=== PATIENT | male | born 1945 | race Caucasian/White ===

== ENCOUNTER 2016-11-15 16:06 | Emergency (ER) | payer MEDICARE, MEDICAID ==
[~2016-11-15] VITALS: Ht 152.4 cm; Wt 59.0 kg
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
--- NOTE | 2016-11-15 16:20 | NUR ---
IV ACCESSED TO [facility]. BLOOD SAMPLE SENT TO LAB
[2016-11-15] MEDS ORDERED: IV NS 0.9% 500 ML IV ONE (16:25)
[2016-11-15] MEDS ORDERED: IV SET PRIMARY PUMP SET 1 EA INFUS.SET MC ONE (16:25)
[2016-11-15] MEDS ORDERED: TDAP [DIPH/PERTUSSIS/TET] 0.5 ML VIAL IM ONE ×2 (16:26→16:30)
[2016-11-15] MEDS ORDERED: IV NS 0.9% 500 ML BAG IV ONE (16:30)
[2016-11-15] MEDS ORDERED: LEVETIRACETAM (500MG) 500 MG in IV NS 0.9% 100 ML IV ONE (16:30)
--- NOTE | 2016-11-15 16:31 | NUR ---
DUE MED GIVEN
--- NOTE | 2016-11-15 16:31 | NUR ---
PT WAS TAKEN TO CT
[2016-11-15 16:33] LABS: BASOPHILS % (AUTO) 0.4 % (0.0-2.0); EOSINOPHILS # (AUTO) 0.4 /CMM (0.0-0.7); EOSINOPHILS % (AUTO) 5.9 % (0.0-6.0); HEMATOCRIT 43 % (39-51); HEMOGLOBIN 13.9 g/dL (13.5-17.5); LYMPHOCYTES # (AUTO) 0.8 /CMM (0.8-4.8); LYMPHOCYTES % (AUTO) 11.8 % (20.0-44.0); MEAN CORPUSCULAR HEMOGLOBIN 30 PG (26.0-33.0); MEAN CORPUSCULAR HGB CONC 33 g/dl (31.0-36.0); MEAN CORPUSCULAR VOLUME 93 fL (80-96); MONOCYTES # (AUTO) 0.5 /CMM (0.1-1.30); MONOCYTES % (AUTO) 6.9 % (2.0-12.0); NEUTROPHILS # (AUTO) 5.2 /CMM (1.8-8.9); PLATELET COUNT (AUTO) 183 /CMM (150-450); RDW COEFFICIENT OF VARIATION 12.2 (11.5-15.0); RED BLOOD CELL COUNT(AUTO) 4.59 MIL/uL (4.5-6.0); WHITE BLOOD COUNT (AUTO) 6.9 K/uL (4.3-11.0)
[2016-11-15 16:44] LABS: CALCIUM, SERUM 8.9 mg/dL (8.5-10.1); CREATININE 1.4 mg/dL (0.6-1.3); POTASSIUM 3.7 mmol/L (3.5-5.1)
[2016-11-15 16:49] LABS: ALBUMIN 4.4 g/dL (3.4-5.0); BILIRUBIN,DIRECT 0.1 mg/dL (0.0-0.2); BILIRUBIN,TOTAL 0.4 mg/dL (0.2-1.0); TOTAL PROTEIN, SERUM 7.9 g/dL (6.4-8.2)
[2016-11-15 16:55] LABS: INR 0.91 (0.87-1.13); PROTHROMBIN TIME 9.5 SECS (9.5-12.7)
[2016-11-15] MEDS ORDERED: OXYB5TAB PO (17:01)
[2016-11-15] MEDS ORDERED: FINA5TAB11 PO (17:01)
[2016-11-15] MEDS ORDERED: LEVE500T9 PO (17:01)
[2016-11-15] MEDS ORDERED: MULT-659 PO (17:01)
[2016-11-15] MEDS ORDERED: SIMV20TA6 PO (17:01)
[2016-11-15] MEDS ORDERED: METO25TA20 PO (17:01)
[2016-11-15 17:36] VITALS: BP 138/80
--- NOTE | 2016-11-15 17:37 | NUR ---
Patient discharged to home in stable condition. Written and verbal after care instructions given. Patient verbalizes understanding of instruction.patient in the waiting room while waiting for his and dtr
== END 2016-11-15 17:37 | disposition home or self-care (01) ==
LOC: ER 16:09
DX: S01.01XA Laceration without foreign body of scalp, initial encounter (principal); R56.9 Unspecified convulsions; Z23 Encounter for immunization; R79.1 Abnormal coagulation profile; W18.39XA Other fall on same level, initial encounter; Y93.89 Activity, other specified; Y92.811 Bus as the place of occurrence of the external cause; Y99.9 Unspecified external cause status
CPT/HCPCS: 12002; 36415; 70450; 80048; 80076; 85025; 85730; 90471; 90715; 96365; 99285; A4606; J1953; J7030; J7040; Z7610

== ENCOUNTER 2018-07-16 21:33 | Inpatient (IN) | payer MEDICARE, MEDICAID ==
[~2018-07-16] VITALS: Ht 175.3 cm; Wt 63.5 kg
[~2018-07-16 21:33] MED LIST: FINA5TAB11 PO; LEVE500T9 PO; METO25TA20 PO; MULT-659 PO; OXYB5TAB PO; SIMV20TA6 PO
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
--- NOTE | 2018-07-16 21:50 | NUR ---
URINE COLLECTED AND SENT TO LAB
--- NOTE | 2018-07-16 21:51 | NUR ---
STALLION MANAGER AT BEDSIDE FOR BLOOD DRAW
[2018-07-16 21:57] LABS: BASOPHILS % (AUTO) 0.5 % (0.0-2.0); EOSINOPHILS % (AUTO) 4.1 % (0.0-6.0); HEMATOCRIT 41 % (39-51); HEMOGLOBIN 13.5 g/dL (13.5-17.5); LYMPHOCYTES # (AUTO) 0.8 /CMM (0.8-4.8); LYMPHOCYTES % (AUTO) 16.1 % (20.0-44.0); MEAN CORPUSCULAR HGB CONC 33 g/dl (31.0-36.0); MEAN CORPUSCULAR VOLUME 95 fL (80-96); MONOCYTES # (AUTO) 0.4 /CMM (0.1-1.30); MONOCYTES % (AUTO) 9.1 % (2.0-12.0); NEUTROPHILS # (AUTO) 3.4 /CMM (1.8-8.9); NEUTROPHILS % (AUTO) 70.2 % (43.0-81.0); PLATELET COUNT (AUTO) 185 /CMM (150-450); RED BLOOD CELL COUNT(AUTO) 4.27 MIL/uL (4.5-6.0); WHITE BLOOD COUNT (AUTO) 4.9 K/uL (4.3-11.0)
[2018-07-16 22:04] LABS: APPEARANCE,URINE CLEAR (CLEAR); BILIRUBIN,URINE NEGATIVE (NEGATIVE); BLOOD, URINE TRACE-INTA Ery/uL (NEGATIVE); COLOR,URINE YELLOW (YELLOW); KETONES,URINE NEGATIVE (NEGATIVE); LEUKOCYTE ESTERASE ,URINE NEGATIVE (NEGATIVE); NITRITE, URINE NEGATIVE (NEGATIVE); PH,URINE 5.5 (5.0-8.0); PROTEIN,URINE NEGATIVE (NEGATIVE); UGLUCOSE TRACE mg/dL (NEGATIVE); UROBILINOGEN,URINE 0.2 EU/dL (0.2)
[2018-07-16 22:13] LABS: CALCIUM, SERUM 9.1 mg/dL (8.5-10.1); CARBON DIOXIDE 27 mmol/L (21-32); CHLORIDE 105 mmol/L (98-107); CREATININE 1.1 mg/dL (0.6-1.3); GLUCOSE 117 mg/dL (74-106); POTASSIUM 4.5 mmol/L (3.5-5.1); SODIUM SERUM 141 mmol/L (136-145); UREA NITROGEN, BLOOD 17 mg/dL (7-18)
[2018-07-16 22:19] LABS: ALANINE AMINOTRANSFERASE 25 U/L (12-78); ALBUMIN 3.8 g/dL (3.4-5.0); ALCOHOL, BLOOD < 3 mg/dL (0-0); ALKALINE PHOSPHATASE 90 U/L (46-116); ASPARTATE AMINOTRANSFERASE 17 U/L (15-37); BILIRUBIN,DIRECT 0.1 mg/dL (0.0-0.2); BILIRUBIN,TOTAL 0.2 mg/dL (0.2-1.0); TOTAL PROTEIN, SERUM 7.2 g/dL (6.4-8.2)
[2018-07-16 22:22] LABS: ACETAMINOPHEN 0 ug/ml (10-30); SALICYLATE 1.2 mg/dL (2.8-20.0)
--- NOTE | 2018-07-16 22:29 | NUR ---
CALLED ART, YOKE PRESSER FOR EVAL
[2018-07-16 22:55] LABS: WBC,URINE 0-2 /HPF (0-3)
[2018-07-16 22:56] LABS: BACTERIA,URINE Rare /HPF (None Seen); SQUAMOUS EPITHELIAL CELL,UR Few /HPF (None Seen)
--- NOTE | 2018-07-16 23:31 | NUR ---
ART, CLOTH EXAMINER MACHINE AT BEDSIDE
--- NOTE | 2018-07-17 00:30 | NUR ---
GAVE REPORT TO FATUMA OLEA FOR ELMIRA. BED ASSIGNMENT 313-B
[2018-07-17] MEDS ORDERED: PRAM0.253 PO (00:53)
[2018-07-17] MEDS ORDERED: HYDR-4384 PO (00:53)
[2018-07-17] MEDS ORDERED: QUET50TA PO (00:53)
[2018-07-17] MEDS ORDERED: QUET100T PO (00:53)
[2018-07-17] MEDS ORDERED: PSYL3.4P6 PO (00:53)
[2018-07-17] MEDS ORDERED: OXCA600T5 PO (00:53)
[2018-07-17] MEDS ORDERED: TRAZ-182 PO (00:53)
[2018-07-17] MEDS ORDERED: INSU100I34 SQ (00:53)
[2018-07-17] MEDS ORDERED: MAG30ORA PO (00:53)
[2018-07-17] MEDS ORDERED: CLON0.1T PO (00:53)
--- NOTE | 2018-07-17 01:29 | NUR ---
PT TRANSFERRED TO [facility] BED 213-B WITH EMT VIA [facility]
[2018-07-17 01:30] VITALS: BP 160/84
[2018-07-17] MEDS ORDERED: MAG HYDROX/AL HYDROX/SIMETH 30 ML UDC PO PRN (02:00)
[2018-07-17] MEDS ORDERED: QUETIAPINE FUMARATE 25 MG TABLET PO PRN ×2 (02:00)
[2018-07-17] MEDS ORDERED: ACETAMINOPHEN 325 MG TABLET PO PRN (02:00)
[2018-07-17] MEDS ORDERED: MAGNESIUM HYDROXIDE 30 ML UDC PO PRN (02:00)
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
--- NOTE | 2018-07-17 06:02 | NUR ---
0600 PAGED AND SPOKE WITH WOOD SHOP TEACHER VINICIO, RE; MED RECON AND LAURA FOR ACCUHECK. HE SAID THAT MED RECON CAN BE DONE BY DAY SHIFT. HE ORDERED ACCUCHECK ACHS, MILD SLIDING SCALE.
--- NOTE | 2018-07-17 06:06 | NUR ---
CALLED SHELBI PELLETIER, PATIENT'S , NO ANSWER, LEFT A MESSAGE
[2018-07-17] MEDS ORDERED: DEXTROSE 50%-WATER 50 ML DISP.SYRIN IV PRN ×2 (06:30→18:00)
[2018-07-17] MEDS ORDERED: INSULIN REGULAR, HUMAN 100 UNIT/ML 3 ML VIAL SQ PRN (06:30)
--- NOTE | 2018-07-17 06:46 | NUR ---
ACCUCHECK @ 0645 92 MG/DL, O.JUICE 120 ML GIVEN.
[2018-07-17] MEDS: BLOOD SUGAR DIAGNOSTIC 1 EACH STRIP IN SCH ×5 (07:30→21:07)
[2018-07-17 08:00] VITALS: BP 160/90
--- NOTE | 2018-07-17 08:40 | NUR ---
GPS/RN RECEIVED TO ORDER FROM DR GARCIA TO CHANGE PROVIDER FROM DR MORTON TO [facility]. ADMITTING CALLED TO MAKE CHANGES. DR MCKEON PAGED OVERHEAD AND THAN CALLED VIA HIS MESSAGING SERVICE TO NOTIFY. [facility] MADE AWARE OF ADMISSION VIA EXCHANGE WELL( DR NATHALY CAVAZOS CALLED BACK AND MADE AWARE)
--- NOTE | 2018-07-17 09:58 | NUR ---
FABIO contacted pts Lindsay [phone] for collateral information. Lindsay stated that she knew very little Greek and was unable to answer questions. FABIO then provided her with visiting hour information and provide her with the nurses station phone number.
--- NOTE | 2018-07-17 10:00 | NUR ---
FABIO contacted pts son Armen [phone] and left a voicemail for callback.
--- NOTE | 2018-07-17 10:00 | NUR ---
SW contacted corbin Sutton at [facility] Address: [address] [place] [address] who confirmed pt is able to return to the facility once stable.
--- NOTE | 2018-07-17 10:21 | NUR ---
INITIAL DISCHARGE PLAN: Patient will return to [facility] Address: [address] [facility], [place] [address] . FABIO confirmed with corbin Sutton at the facility. FABIO will help form a safe and proper discharge in collaboration with MD and facility.
[2018-07-17 16:00] VITALS: BP 150/95
--- NOTE | 2018-07-17 17:20 | NUR ---
GPS/RN CALLED [facility] TO REMIND TO SEE THE PT. PHYSICIAN CORE ANALYST STEFFEN PARKER MD WILL CALL BACK PER WASTE HAND.
[2018-07-17] MEDS: risperiDONE-M 0.5 MG TAB.RAPDIS PO SCH (18:17)
[2018-07-17] MEDS: PRAMIPEXOLE DI-HCL 0.25 MG TABLET PO SCH (18:17)
[2018-07-17 20:00] VITALS: BP 142/73
[2018-07-17] MEDS: LEVETIRACETAM (250 MG) 250 MG TABLET PO SCH (21:06)
[2018-07-17] MEDS: DIVALPROEX SODIUM 125 MG TABLET.DR PO SCH (21:06)
[2018-07-17] MEDS: METOPROLOL TARTRATE 25 MG TABLET PO SCH (21:07)
[2018-07-17] MEDS: ZOLPIDEM TARTRATE 5 MG TABLET PO PRN (21:08)
[2018-07-17] MEDS: INSULIN REGULAR, HUMAN 100 UNIT/ML 3 ML VIAL SQ PRN (21:15)
--- NOTE | 2018-07-17 21:16 | NUR ---
ACCUCHECK 132 MG/DL, 2 UNITS OF REGULAR INSULIN SC ADMINISTERED. HAD HS SNACKS, EGG SANDWICH AND 125 ML OF CRANBERRY JUICE. ATE 100%.
[2018-07-18 07:29] LABS: BASOPHILS % (AUTO) 0.6 % (0.0-2.0); EOSINOPHILS % (AUTO) 5.1 % (0.0-6.0); HEMATOCRIT 43 % (39-51); HEMOGLOBIN 14.5 g/dL (13.5-17.5); LYMPHOCYTES # (AUTO) 0.8 /CMM (0.8-4.8); LYMPHOCYTES % (AUTO) 18.6 % (20.0-44.0); MEAN CORPUSCULAR HGB CONC 34 g/dl (31.0-36.0); MEAN CORPUSCULAR VOLUME 93 fL (80-96); MONOCYTES # (AUTO) 0.4 /CMM (0.1-1.30); MONOCYTES % (AUTO) 8.7 % (2.0-12.0); PLATELET COUNT (AUTO) 208 /CMM (150-450); RED BLOOD CELL COUNT(AUTO) 4.57 MIL/uL (4.5-6.0); WHITE BLOOD COUNT (AUTO) 4.4 K/uL (4.3-11.0)
[2018-07-18] MEDS: BLOOD SUGAR DIAGNOSTIC 1 EACH STRIP IN SCH ×8 (07:30→21:23)
[2018-07-18 07:56] LABS: ALBUMIN 3.5 g/dL (3.4-5.0); BILIRUBIN,TOTAL 0.3 mg/dL (0.2-1.0); CALCIUM, SERUM 8.7 mg/dL (8.5-10.1); CREATININE 1.2 mg/dL (0.6-1.3); POTASSIUM 4.1 mmol/L (3.5-5.1); TOTAL PROTEIN, SERUM 7.3 g/dL (6.4-8.2)
[2018-07-18 08:00] VITALS: BP 110/63
[2018-07-18] MEDS: DIVALPROEX SODIUM 125 MG TABLET.DR PO SCH ×3 (08:20→20:42)
[2018-07-18] MEDS: risperiDONE-M 0.5 MG TAB.RAPDIS PO SCH ×2 (08:20→17:32)
[2018-07-18] MEDS: LEVETIRACETAM (250 MG) 250 MG TABLET PO SCH ×2 (08:20→20:42)
[2018-07-18] MEDS: METOPROLOL TARTRATE 25 MG TABLET PO SCH ×2 (08:21→20:43)
[2018-07-18] MEDS: PSYLLIUM SEED 1 PKT PACKET PO SCH ×2 (08:23→17:32)
[2018-07-18] MEDS: FINASTERIDE (5 MG) 5 MG TABLET PO SCH (08:23)
[2018-07-18] MEDS: MULTIVIT W/MINERALS 1 TAB TABLET PO SCH (08:23)
[2018-07-18] MEDS: CLONIDINE HCL 0.1 MG TABLET PO SCH ×3 (08:24→17:32)
[2018-07-18] MEDS: OXCARBAZEPINE 150 MG TABLET PO SCH ×3 (08:25→17:32)
[2018-07-18 08:28] LABS: THYROID STIMULATING HORMONE 4.685 uIU/mL (0.358-3.74)
[2018-07-18] MEDS: INSULIN REGULAR, HUMAN 100 UNIT/ML 3 ML VIAL SQ PRN (13:23)
[2018-07-18 16:00] VITALS: BP 126/78
[2018-07-18] MEDS: PRAMIPEXOLE DI-HCL 0.25 MG TABLET PO SCH (17:33)
[2018-07-18 20:00] VITALS: BP 111/83
[2018-07-18] MEDS: ZOLPIDEM TARTRATE 5 MG TABLET PO PRN (20:44)
--- NOTE | 2018-07-18 21:23 | NUR ---
ACCUCHECK 105 MG/DL, NO INSULIN DUE AT THIS TIME. HS SNACKS GIVEN
[2018-07-19 08:00] VITALS: BP 169/103
[2018-07-19] MEDS: BLOOD SUGAR DIAGNOSTIC 1 EACH STRIP IN SCH ×6 (08:49→21:46)
[2018-07-19] MEDS: CLONIDINE HCL 0.1 MG TABLET PO SCH ×3 (08:50→18:01)
[2018-07-19] MEDS: MULTIVIT W/MINERALS 1 TAB TABLET PO SCH (08:50)
[2018-07-19] MEDS: FINASTERIDE (5 MG) 5 MG TABLET PO SCH (08:50)
[2018-07-19] MEDS: LEVETIRACETAM (250 MG) 250 MG TABLET PO SCH ×2 (08:50→21:46)
[2018-07-19] MEDS: DIVALPROEX SODIUM 125 MG TABLET.DR PO SCH ×4 (08:50→20:48)
[2018-07-19] MEDS: PSYLLIUM SEED 1 PKT PACKET PO SCH ×2 (08:50→17:00)
[2018-07-19] MEDS: METOPROLOL TARTRATE 25 MG TABLET PO SCH ×2 (08:51→20:47)
[2018-07-19] MEDS: risperiDONE-M 0.5 MG TAB.RAPDIS PO SCH ×3 (08:51→20:47)
[2018-07-19] MEDS: OXCARBAZEPINE 150 MG TABLET PO SCH ×3 (08:51→17:56)
--- NOTE | 2018-07-19 13:00 | NUR ---
GPS/RN DR CAVAZOS MADE AWARE OF PT BEING NAUSEUS AND HAVING ELEVATED BP. NEW ORDERS RECEIVED FOR ZOFRAN 1MG PO Q6 AND IT IS OK TO HOLD 1300 TRILEPTAL .
[2018-07-19 13:12] VITALS: BP 162/99
[2018-07-19] MEDS ORDERED: ONDANSETRON 4 MG TAB.RAPDIS SL PRN (14:00)
--- NOTE | 2018-07-19 14:50 | NUR ---
GPS/RN DR MCGILL'S EXCHANGE CALLED FOR THE ORDERS PT HAS ELEVATED BP. PT WAS NAUSEAS AND ZOFRAN SL GIVEN ORDERED.
[2018-07-19] MEDS ORDERED: CLONIDINE HCL 0.1 MG TABLET PO ONE (15:30)
[2018-07-19 16:00] VITALS: BP 168/103
[2018-07-19] MEDS ORDERED: CLONIDINE HCL 0.1 MG TABLET PO SCH (17:00)
[2018-07-19] MEDS: PRAMIPEXOLE DI-HCL 0.25 MG TABLET PO SCH (18:00)
[2018-07-19 20:00] VITALS: BP 83/49
[2018-07-19 20:14] VITALS: BP 75/53
--- NOTE | 2018-07-19 20:34 | NUR ---
RN GPS NOTES CALLED AND SPOKE TO VINICIO REGARDING PATIENTS INCREASE BLOOD PRESSURE IN AM AND EARLIER REPORTS OF NEW CLONIDINE ORDER INCREASED TO 0.2MG AND GIVEN AND NOW BP IS LOW AT 83/49,80,18,98%RA, PATENT ASYMPTOMATIC ALERT AND ORIENTEDX 3-4 ABLE TO FOLLOW COMMANDS AND IS VERBALLY RESPONSIVE. PER VINICIO NO NEW ORDERS AT THIS TIME MONITOR.
--- NOTE | 2018-07-19 20:48 | NUR ---
RN GPS NOTES DEPAKOTE AND RISPERDAL HELD PER DR. GARCIA, DUE TO LOW BLOOD PRESSURE. PER MD DO NOT GIVE AT THIS TIME SAUD TO LOW BP LOPRESSOR ALSO HELD DUE TO LOW BP
[2018-07-20] VITALS: BP 92/60
--- NOTE | 2018-07-20 | NUR ---
RN GPS NOTES MANUALLY TOOK BLOOD PRESSURE NOTED BP INCREASING TO 92/60, ASYMPTOMATIC VERBALLY RESPONSIVE WILL CONTINUE TO MONITOR.
[2018-07-20 05:30] VITALS: BP 116/69
--- NOTE | 2018-07-20 05:35 | NUR ---
RN GPS NOTES PATIENT B/P NOTES INCREASING 116/69,HEART RATE 66 NO CHANGE IN LOC PATIENT IS VERBALLY RESPONSIVE THROUGHOUT NIGHT REMAINS SAFE.
[2018-07-20 08:00] VITALS: BP 118/58
[2018-07-20] MEDS: METOPROLOL TARTRATE 25 MG TABLET PO SCH ×2 (09:00→21:51)
[2018-07-20] MEDS: CLONIDINE HCL 0.1 MG TABLET PO SCH ×3 (09:00→17:00)
[2018-07-20] MEDS: FINASTERIDE (5 MG) 5 MG TABLET PO SCH (09:15)
[2018-07-20] MEDS: risperiDONE-M 0.5 MG TAB.RAPDIS PO SCH ×2 (09:16→21:50)
[2018-07-20] MEDS: LEVETIRACETAM (250 MG) 250 MG TABLET PO SCH ×2 (09:16→21:49)
[2018-07-20] MEDS: MULTIVIT W/MINERALS 1 TAB TABLET PO SCH (09:17)
[2018-07-20] MEDS: BLOOD SUGAR DIAGNOSTIC 1 EACH STRIP IN SCH ×4 (09:18→21:41)
[2018-07-20] MEDS: DIVALPROEX SODIUM 125 MG TABLET.DR PO SCH ×3 (09:18→21:52)
[2018-07-20] MEDS: PSYLLIUM SEED 1 PKT PACKET PO SCH ×2 (09:19→17:30)
--- NOTE | 2018-07-20 10:44 | NUR ---
gps rn note: Seen and examined by physical therapist, per PT, no PT needed noted
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
--- NOTE | 2018-07-20 14:17 | NUR ---
WOUND CARE CONSULT: PT REFUSED SKIN ASSESSMENT. PT NOTED TO BE AMBULATORY AND IS CONTINENT PER NURSING STAFF. WILL SEE PT PT CONDITION PERMITS.
[2018-07-20 16:00] VITALS: BP 121/54
[2018-07-20] MEDS: PRAMIPEXOLE DI-HCL 0.25 MG TABLET PO SCH (17:31)
[2018-07-20] MEDS: INSULIN REGULAR, HUMAN 100 UNIT/ML 3 ML VIAL SQ PRN (17:51)
[2018-07-20 20:07] VITALS: BP 127/72
[2018-07-21] MEDS: BLOOD SUGAR DIAGNOSTIC 1 EACH STRIP IN SCH ×4 (07:30→21:24)
[2018-07-21 08:00] VITALS: BP 150/73
[2018-07-21] MEDS: METOPROLOL TARTRATE 25 MG TABLET PO SCH ×2 (09:00→21:00)
[2018-07-21] MEDS: INSULIN REGULAR, HUMAN 100 UNIT/ML 3 ML VIAL SQ PRN ×2 (11:06→17:12)
[2018-07-21] MEDS: DIVALPROEX SODIUM 125 MG TABLET.DR PO SCH ×3 (11:07→21:27)
[2018-07-21] MEDS: LEVETIRACETAM (250 MG) 250 MG TABLET PO SCH ×2 (11:07→21:26)
[2018-07-21] MEDS: MULTIVIT W/MINERALS 1 TAB TABLET PO SCH (11:08)
[2018-07-21] MEDS: FINASTERIDE (5 MG) 5 MG TABLET PO SCH (11:09)
[2018-07-21] MEDS: CLONIDINE HCL 0.1 MG TABLET PO SCH ×3 (11:09→17:10)
[2018-07-21] MEDS: PSYLLIUM SEED 1 PKT PACKET PO SCH ×2 (11:09→17:11)
[2018-07-21] MEDS: risperiDONE-M 0.5 MG TAB.RAPDIS PO SCH ×2 (11:10→21:00)
--- NOTE | 2018-07-21 14:20 | NUR ---
FABIO met with pts Lindsay [phone] and gave her letter confirming pt is currently hospitalized.
[2018-07-21 16:00] VITALS: BP 111/55
[2018-07-21] MEDS: PRAMIPEXOLE DI-HCL 0.25 MG TABLET PO SCH (17:10)
[2018-07-21 21:40] VITALS: BP 106/54
[2018-07-22 07:08] LABS: BASOPHILS % (AUTO) 0.9 % (0.0-2.0); EOSINOPHILS % (AUTO) 3.9 % (0.0-6.0); HEMATOCRIT 38 % (39-51); HEMOGLOBIN 12.9 g/dL (13.5-17.5); LYMPHOCYTES # (AUTO) 0.9 /CMM (0.8-4.8); LYMPHOCYTES % (AUTO) 22.5 % (20.0-44.0); MEAN CORPUSCULAR HGB CONC 34 g/dl (31.0-36.0); MEAN CORPUSCULAR VOLUME 94 fL (80-96); MONOCYTES # (AUTO) 0.3 /CMM (0.1-1.30); MONOCYTES % (AUTO) 7.7 % (2.0-12.0); NEUTROPHILS # (AUTO) 2.6 /CMM (1.8-8.9); PLATELET COUNT (AUTO) 194 /CMM (150-450); RED BLOOD CELL COUNT(AUTO) 4.05 MIL/uL (4.5-6.0)
[2018-07-22] MEDS: BLOOD SUGAR DIAGNOSTIC 1 EACH STRIP IN SCH ×4 (07:30→21:13)
[2018-07-22 07:43] LABS: CALCIUM, SERUM 8.9 mg/dL (8.5-10.1); MAGNESIUM 2.2 mg/dL (1.8-2.4); PHOSPHORUS 3.8 mg/dL (2.5-4.9); POTASSIUM 4.3 mmol/L (3.5-5.1)
[2018-07-22 08:00] VITALS: BP 129/66
--- NOTE | 2018-07-22 08:30 | NUR ---
WOUND CARE CONSULT: PT PRESENTS WITH SKIN STAINING TO INNER BUTTOCKS AREA, PRESENT ON ADMISSION. PT IS AMBULATORY AND CONTINENT BUT HE IS UNSTEADY ON HIS FEET PER NURSING STAFF. WILL SEE PRAlem. IN AGREEMENT WITH PLAN OF CARE.
[2018-07-22] MEDS: DIVALPROEX SODIUM 125 MG TABLET.DR PO SCH ×3 (09:00→21:13)
[2018-07-22] MEDS: risperiDONE-M 0.5 MG TAB.RAPDIS PO SCH ×2 (09:00→21:00)
[2018-07-22] MEDS: LEVETIRACETAM (250 MG) 250 MG TABLET PO SCH ×2 (09:00→21:13)
[2018-07-22] MEDS: MULTIVIT W/MINERALS 1 TAB TABLET PO SCH (09:00)
[2018-07-22] MEDS: METOPROLOL TARTRATE 25 MG TABLET PO SCH ×2 (09:00→21:00)
[2018-07-22] MEDS: PSYLLIUM SEED 1 PKT PACKET PO SCH ×2 (09:00→17:27)
[2018-07-22] MEDS: CLONIDINE HCL 0.1 MG TABLET PO SCH ×3 (09:00→17:27)
[2018-07-22] MEDS: FINASTERIDE (5 MG) 5 MG TABLET PO SCH (09:00)
[2018-07-22] MEDS ORDERED: Z GUARD REMEDY 2 OZ OINT TP PRN (09:00)
[2018-07-22] MEDS: PRAMIPEXOLE DI-HCL 0.25 MG TABLET PO SCH (14:16)
[2018-07-22 16:00] VITALS: BP 120/64
[2018-07-22] MEDS: INSULIN REGULAR, HUMAN 100 UNIT/ML 3 ML VIAL SQ PRN ×2 (17:09→21:18)
[2018-07-22 20:18] VITALS: BP 89/50
[2018-07-22 21:00] VITALS: BP 101/51
[2018-07-23] MEDS: BLOOD SUGAR DIAGNOSTIC 1 EACH STRIP IN SCH ×4 (07:35→22:28)
[2018-07-23 08:00] VITALS: BP 104/63
[2018-07-23] MEDS: CLONIDINE HCL 0.1 MG TABLET PO SCH ×3 (08:35→17:00)
[2018-07-23] MEDS: METOPROLOL TARTRATE 25 MG TABLET PO SCH ×2 (08:36→22:12)
[2018-07-23] MEDS: risperiDONE-M 0.5 MG TAB.RAPDIS PO SCH ×3 (08:36→22:15)
--- NOTE | 2018-07-23 08:39 | NUR ---
FABIO faxed requested clinical information to Jake-case packer and sealer with [employer] P:[phone] F:[phone]. Per Jake the [employer] does not manage pts care but oversees it and therefore, needs clinical information and daily clinicals faxed.
[2018-07-23] MEDS: PSYLLIUM SEED 1 PKT PACKET PO SCH ×2 (08:57→17:25)
[2018-07-23] MEDS: DIVALPROEX SODIUM 125 MG TABLET.DR PO SCH ×3 (08:58→22:12)
[2018-07-23] MEDS: LEVETIRACETAM (250 MG) 250 MG TABLET PO SCH ×2 (08:58→22:12)
[2018-07-23] MEDS: FINASTERIDE (5 MG) 5 MG TABLET PO SCH (08:58)
[2018-07-23] MEDS: MULTIVIT W/MINERALS 1 TAB TABLET PO SCH (08:58)
[2018-07-23 12:11] VITALS: BP 103/58
[2018-07-23 16:00] VITALS: BP 139/60
[2018-07-23] MEDS: PRAMIPEXOLE DI-HCL 0.25 MG TABLET PO SCH (17:25)
--- NOTE | 2018-07-23 17:27 | NUR ---
MEDICATION NOTE. PT 1700 BP MED HELD R/T TO LOW BP DURING SHIFT. WILL ENDORSE TO NIGHT RN TO MONITOR.
[2018-07-23 20:00] VITALS: BP 125/56
[2018-07-23] MEDS: ZOLPIDEM TARTRATE 5 MG TABLET PO PRN (22:12)
--- NOTE | 2018-07-24 01:40 | NUR ---
RN NOTES RN CAME BACK FROM BREAK. COVERING NURSE MENTIONED PATIENT WAS FOUND ON FLOOR. PATIENT IS ON LOW BED AND CRAWLS AROUND, NO PAIN NOTED, NO SWELLING OR REDNESS NOTED. SKIN TEAR FOUND ON RIGHT ELBOW AND RIGHT PATEL. CLEANSED AND STOPPED BLEEDING. APPLIED DRY DRESSING. NO SIGNS OF INFECTION.
[2018-07-24] MEDS: BLOOD SUGAR DIAGNOSTIC 1 EACH STRIP IN SCH ×4 (07:30→22:34)
[2018-07-24 08:00] VITALS: BP 110/63
[2018-07-24] MEDS: LEVETIRACETAM (250 MG) 250 MG TABLET PO SCH ×2 (09:39→22:18)
[2018-07-24] MEDS: MULTIVIT W/MINERALS 1 TAB TABLET PO SCH (09:39)
[2018-07-24] MEDS: FINASTERIDE (5 MG) 5 MG TABLET PO SCH (09:39)
[2018-07-24] MEDS: DIVALPROEX SODIUM 125 MG TABLET.DR PO SCH ×3 (09:39→22:18)
[2018-07-24] MEDS: PSYLLIUM SEED 1 PKT PACKET PO SCH ×2 (09:39→16:42)
[2018-07-24] MEDS: risperiDONE-M 0.5 MG TAB.RAPDIS PO SCH ×3 (09:40→22:19)
--- NOTE | 2018-07-24 09:42 | NUR ---
FABIO faxed requested clinical information to Jake-nurse outreach case manager with [employer] P:[phone] F:[phone].
--- NOTE | 2018-07-24 10:18 | NUR ---
OBJECTIVE C DEVELOPER RV PT. WILL COMPLETE WOUND CARE ORDERED.
--- NOTE | 2018-07-24 10:37 | NUR ---
WOUND CARE CONSULT: PT PRESENTS AMBULATORY WITH WALKER AND CONTINENT WITH RT ELBOW SKIN TEAR AND RT KNEE ABRASION. RECOMMENDATIONS MADE FOR WOUND CARE. DISCUSSED WITH NURSING STAFF. WILL SEE PRGil VARGAS IN AGREEMENT WITH PLAN OF CARE. CURRENT BOBBY SCORE IS 18.
[2018-07-24] MEDS: CLONIDINE HCL 0.1 MG TABLET PO SCH ×3 (12:17→16:39)
[2018-07-24] MEDS: METOPROLOL TARTRATE 25 MG TABLET PO SCH ×2 (12:17→22:20)
--- NOTE | 2018-07-24 13:00 | NUR ---
PT BP WNL AND PT REFUSING BP MED
[2018-07-24 16:00] VITALS: BP 119/69
[2018-07-24] MEDS: PRAMIPEXOLE DI-HCL 0.25 MG TABLET PO SCH (17:35)
--- NOTE | 2018-07-24 19:24 | NUR ---
GPS RN NOTE, RECEIVED PATIENT AWAKE AND IN BED NO S/S OR COMPLAINTS OF PAIN AT THIS TIME. PATIENT IS DISPLAYING NO S/S OF APPARENT DISTRESS AT THIS TIME. PATIENT BREATHING IS UNLABORED WITH EQUAL RISE AND FALL OF THE CHEST. PATIENT HAS A ONE TO ONE SITTER FOR HIGH FALL RISK. PATIENT IS ALERT AND ORIENTED X 1 ON ROOM AIR WITH A SPO2 0F 96%. PATIENT IS MED COMPLIANT, DISORGANIZED, DELUSIONAL, UNCOOPERATIVE, CONFUSED AT TIME, AND NEEDS REORIENTATION. PATIENT DENIES SUICIDE AND HOMICIDAL IDEATIONS AT THIS TIME. PATIENT ASSISTED WITH TURNING AND REPOSITIONING Q2HR AND PRN FOR COMFORT AND CIRCULATION. PATIENT HAS NO NEEDS AT THIS TIME. PATIENT EDUCATED ON THE USE OF THE CALL GUERIN. PATIENT BED SIDE RAILS ARE UP X 2 FOR SAFETY, BED IS LOCKED AND LOW. WILL CONTINUE TO MONITOR AND MAINTAIN SAFETY Q15 MIN WITH THE HELP OF STAFF.
[2018-07-24 20:00] VITALS: BP 116/61
[2018-07-25 08:00] VITALS: BP 113/71
[2018-07-25] MEDS: BLOOD SUGAR DIAGNOSTIC 1 EACH STRIP IN SCH ×4 (08:47→21:23)
[2018-07-25] MEDS: FINASTERIDE (5 MG) 5 MG TABLET PO SCH (08:48)
[2018-07-25] MEDS: DIVALPROEX SODIUM 125 MG TABLET.DR PO SCH ×3 (08:48→21:09)
[2018-07-25] MEDS: MULTIVIT W/MINERALS 1 TAB TABLET PO SCH (08:48)
[2018-07-25] MEDS: risperiDONE-M 0.5 MG TAB.RAPDIS PO SCH ×3 (08:49→21:09)
[2018-07-25] MEDS: PSYLLIUM SEED 1 PKT PACKET PO SCH ×2 (08:52→16:33)
[2018-07-25] MEDS: CLONIDINE HCL 0.1 MG TABLET PO SCH (08:53)
[2018-07-25] MEDS: METOPROLOL TARTRATE 25 MG TABLET PO SCH ×2 (08:53→21:00)
[2018-07-25] MEDS: LEVETIRACETAM (250 MG) 250 MG TABLET PO SCH ×2 (08:54→21:09)
[2018-07-25] MEDS ORDERED: CLONIDINE HCL 0.1 MG TABLET PO PRN (12:00)
[2018-07-25 16:00] VITALS: BP 132/71
[2018-07-25] MEDS: PRAMIPEXOLE DI-HCL 0.25 MG TABLET PO SCH (17:32)
[2018-07-25 20:00] VITALS: BP 116/73
[2018-07-25 22:00] VITALS: BP 115/70
[2018-07-26] MEDS: BLOOD SUGAR DIAGNOSTIC 1 EACH STRIP IN SCH ×4 (07:30→21:34)
[2018-07-26 07:59] LABS: THYROID STIMULATING HORMONE 2.315 uIU/mL (0.358-3.74)
[2018-07-26 08:00] VITALS: BP 101/56
[2018-07-26] MEDS: METOPROLOL TARTRATE 25 MG TABLET PO SCH (09:00)
[2018-07-26] MEDS: DIVALPROEX SODIUM 125 MG TABLET.DR PO SCH ×3 (09:05→21:33)
[2018-07-26] MEDS: risperiDONE-M 0.5 MG TAB.RAPDIS PO SCH ×3 (09:06→21:34)
[2018-07-26] MEDS: PSYLLIUM SEED 1 PKT PACKET PO SCH ×2 (09:06→17:33)
[2018-07-26] MEDS: FINASTERIDE (5 MG) 5 MG TABLET PO SCH (09:06)
[2018-07-26] MEDS: LEVETIRACETAM (250 MG) 250 MG TABLET PO SCH ×2 (09:06→21:33)
[2018-07-26] MEDS: MULTIVIT W/MINERALS 1 TAB TABLET PO SCH (09:06)
[2018-07-26 16:00] VITALS: BP 107/54
[2018-07-26] MEDS: PRAMIPEXOLE DI-HCL 0.25 MG TABLET PO SCH (17:32)
[2018-07-26 20:00] VITALS: BP 98/61
[2018-07-27 07:19] LABS: BASOPHILS % (AUTO) 0.8 % (0.0-2.0); EOSINOPHILS % (AUTO) 6.9 % (0.0-6.0); HEMATOCRIT 41 % (39-51); HEMOGLOBIN 13.8 g/dL (13.5-17.5); LYMPHOCYTES % (AUTO) 22.7 % (20.0-44.0); MEAN CORPUSCULAR HGB CONC 33 g/dl (31.0-36.0); MEAN CORPUSCULAR VOLUME 95 fL (80-96); MONOCYTES # (AUTO) 0.4 /CMM (0.1-1.30); MONOCYTES % (AUTO) 8.5 % (2.0-12.0); NEUTROPHILS # (AUTO) 2.8 /CMM (1.8-8.9); NEUTROPHILS % (AUTO) 61.1 % (43.0-81.0); PLATELET COUNT (AUTO) 188 /CMM (150-450); RED BLOOD CELL COUNT(AUTO) 4.36 MIL/uL (4.5-6.0); WHITE BLOOD COUNT (AUTO) 4.6 K/uL (4.3-11.0)
[2018-07-27 07:33] LABS: ALBUMIN 3.4 g/dL (3.4-5.0); BILIRUBIN,TOTAL 0.3 mg/dL (0.2-1.0); CALCIUM, SERUM 8.5 mg/dL (8.5-10.1); CREATININE 1.3 mg/dL (0.6-1.3); MAGNESIUM 2.1 mg/dL (1.8-2.4); PHOSPHORUS 3.2 mg/dL (2.5-4.9); POTASSIUM 4.2 mmol/L (3.5-5.1); TOTAL PROTEIN, SERUM 6.8 g/dL (6.4-8.2)
[2018-07-27] MEDS: BLOOD SUGAR DIAGNOSTIC 1 EACH STRIP IN SCH ×4 (07:41→21:46)
[2018-07-27 08:00] VITALS: BP 115/68
--- NOTE | 2018-07-27 09:17 | NUR ---
FABIO faxed clinicals to Jake-case briefer with [employer] P:[phone] F:[phone].
[2018-07-27] MEDS: DIVALPROEX SODIUM 125 MG TABLET.DR PO SCH ×3 (09:35→21:45)
[2018-07-27] MEDS: risperiDONE-M 0.5 MG TAB.RAPDIS PO SCH ×3 (09:36→21:46)
[2018-07-27] MEDS: FINASTERIDE (5 MG) 5 MG TABLET PO SCH (09:36)
[2018-07-27] MEDS: PSYLLIUM SEED 1 PKT PACKET PO SCH ×2 (09:36→16:18)
[2018-07-27] MEDS: MULTIVIT W/MINERALS 1 TAB TABLET PO SCH (09:36)
[2018-07-27] MEDS: LEVETIRACETAM (250 MG) 250 MG TABLET PO SCH ×2 (09:36→21:46)
--- NOTE | 2018-07-27 15:03 | NUR ---
FABIO contacted pts Lindsay [phone] and informed her pt is discharging tomorrow 07/28/18 back to [facility]. Pts stated that was good.
[2018-07-27 16:00] VITALS: BP 105/56
[2018-07-27] MEDS: PRAMIPEXOLE DI-HCL 0.25 MG TABLET PO SCH (17:14)
[2018-07-27 20:12] VITALS: BP 119/58
[2018-07-28] MEDS: BLOOD SUGAR DIAGNOSTIC 1 EACH STRIP IN SCH ×2 (07:30→12:59)
[2018-07-28 08:00] VITALS: BP 113/62
[2018-07-28] MEDS: risperiDONE-M 0.5 MG TAB.RAPDIS PO SCH ×2 (09:21→13:18)
[2018-07-28] MEDS: DIVALPROEX SODIUM 125 MG TABLET.DR PO SCH ×2 (09:21→13:15)
[2018-07-28] MEDS: PSYLLIUM SEED 1 PKT PACKET PO SCH (09:21)
[2018-07-28] MEDS: LEVETIRACETAM (250 MG) 250 MG TABLET PO SCH (09:21)
[2018-07-28] MEDS: FINASTERIDE (5 MG) 5 MG TABLET PO SCH (09:21)
[2018-07-28] MEDS: MULTIVIT W/MINERALS 1 TAB TABLET PO SCH (09:23)
--- NOTE | 2018-07-28 13:24 | NUR ---
DISCHARGE NOTE: Pt will be discharged at 2:15pm via [facility] ambulance trip#[id number] to [facility] ([facility]) [address] [facility] [id number] . Pts Lindsay [phone] has been notified and agreed with discharge plan. Pts mood is euthymic with congruent affect. Pt denied visual/auditory hallucinations and denied suicidal/homicidal ideations. Pt will be under the care of Equipment Operator: Dr. Sanjiv Hughes [address] [address] [phone] and Psychiatrist: Dr. Perry Hernández [address] [place] [address] [phone]. The multidisciplinary exitcare form was done, printed, signed, and given to the patient.
--- NOTE | 2018-07-28 14:50 | NUR ---
SEAT TRIMMER NOTE:PATIENT ALERT VERBALLY RESPONSIVE ,VS STABLE ,DENIES SI/HI/AVH ,NO C/O PAIN SEEN BY AND DR. CAVAZOS WITH DISCHARGE ORDERS ALL PRISCA CARRIED OUT REPORT GIVEN TO DELILAH OLEA IN SNF .ALL BELONGINGS RETURNED TO PATIENT PATIENT DISCHRAGED WITH AMBULANCE..
== END 2018-07-28 14:50 | DRG 885 ==
LOC: ER 21:39 → GPS 07-17 00:23
PROVIDERS: ADMIT Psychiatry & Neurology Psychiatry; ATTEND Psychiatry & Neurology Psychiatry
DX: F29 Unspecified psychosis not due to a substance or known physiological condition (principal); F02.81 Dementia in other diseases classified elsewhere, unspecified severity, with behavioral disturbance; G93.40 Encephalopathy, unspecified; F41.9 Anxiety disorder, unspecified; E11.9 Type 2 diabetes mellitus without complications; E78.5 Hyperlipidemia, unspecified; G40.909 Epilepsy, unspecified, not intractable, without status epilepticus; I10 Essential (primary) hypertension; G30.9 Alzheimer's disease, unspecified; I25.10 Atherosclerotic heart disease of native coronary artery without angina pectoris; F39 Unspecified mood [affective] disorder; N40.0 Benign prostatic hyperplasia without lower urinary tract symptoms
CPT/HCPCS: 36415; 80048-TC; 80053-TC; 80061-TC; 80076-TC; 80164-TC; 80305; 81000-TC; 82962-TC; 83735-TC; 84100-TC; 84439-TC; 84443-TC; 84481; 85025-TC; 87081-TC; G0480; J1815; Q0162

== ENCOUNTER 2022-06-12 21:31 | Inpatient (IN) | payer MEDICARE, OTHER ==
[~2022-06-12] VITALS: Ht 162.6 cm; Wt 63.5 kg
[~2022-06-12 21:31] MED LIST changes: +CLON0.1T PO; +FINA5TAB11 GT; -FINA5TAB11 PO; +HYDR-4384 PO; +INSU100I34 SQ; +LEVE500T9 GT; -LEVE500T9 PO; +MAG30ORA GT; +METO25TA20 GT; -METO25TA20 PO; +OXCA600T5 PO; -OXYB5TAB PO; +PRAM0.253 PO; +PSYL3.4P6 GT; -SIMV20TA6 PO
--- NOTE | 2022-06-12 21:50 | NUR ---
PT BIBPA C/O MULTIPLE EPISODES OF EMESIS SINCE 1699. PT AAOX2 BREATHING EVENLY AND UNLABORED. PT ON 5L O2 VIA NC. PT ATTACHED TO MONITOR AND POX.
[2022-06-12] MEDS ORDERED: ONDANSETRON HCL/PF 4 MG/2 ML VIAL IVP ONE (22:30)
[2022-06-12] MEDS ORDERED: IV NS 0.9% 500 ML BAG IV ONE (22:30)
--- NOTE | 2022-06-12 22:30 | NUR ---
LABS DRAWN AND SENT TO LAB
[2022-06-12] MEDS ORDERED: ONDANSETRON HCL/PF 4 MG/2 ML VIAL ONE (22:32)
--- NOTE | 2022-06-12 22:32 | NUR ---
EMT AT BEDSIDE FOR EKG
[2022-06-12] MEDS ORDERED: LIDOCAINE 2% JEL UROJET 10 ML MM ONE ×2 (22:33→23:00)
--- NOTE | 2022-06-12 22:45 | NUR ---
URINE COLLECTED AND SENT TO LAB
--- NOTE | 2022-06-12 23:00 | NUR ---
Sara lei in [facility] - 06/12/22 at 2308 by NICHOLE TAKEN TO RADIOLOGY
[2022-06-12 23:05] LABS: CALCIUM, SERUM 9.3 mg/dL (8.5-10.1); CARBON DIOXIDE 27 mmol/L (21-32); CHLORIDE 103 mmol/L (98-107); CREATININE 1.2 mg/dL (0.6-1.3); GLUCOSE 247 mg/dL (74-106); POTASSIUM 4.6 mmol/L (3.5-5.1); SODIUM SERUM 138 mmol/L (136-145); UREA NITROGEN, BLOOD 29 mg/dL (7-18)
[2022-06-12 23:10] LABS: ALANINE AMINOTRANSFERASE 22 U/L (12-78); ALBUMIN 3.3 g/dL (3.4-5.0); ALKALINE PHOSPHATASE 79 U/L (46-116); ASPARTATE AMINOTRANSFERASE 22 U/L (15-37); BASOPHILS % (AUTO) 0.2 % (0.0-2.0); BILIRUBIN,DIRECT 0.1 mg/dL (0.0-0.2); BILIRUBIN,TOTAL 0.5 mg/dL (0.2-1.0); HEMATOCRIT 45 % (39-51); HEMOGLOBIN 14.9 g/dL (13.5-17.5); LIPASE 122 U/L (73-393); LYMPHOCYTES # (AUTO) 0.7 K/uL (0.8-4.8); LYMPHOCYTES % (AUTO) 9.9 % (20.0-44.0); MEAN CORPUSCULAR HGB CONC 33 g/dl (31.0-36.0); MEAN CORPUSCULAR VOLUME 95 fL (80-96); MONOCYTES # (AUTO) 0.2 K/uL (0.1-1.30); MONOCYTES % (AUTO) 3.1 % (2.0-12.0); NEUTROPHILS % (AUTO) 86.8 % (43.0-81.0); PLATELET COUNT (AUTO) 149 K/uL (150-450); RED BLOOD CELL COUNT(AUTO) 4.72 MIL/uL (4.5-6.0); TOTAL PROTEIN, SERUM 7.6 g/dL (6.4-8.2); WHITE BLOOD COUNT (AUTO) 6.9 K/uL (4.3-11.0)
--- NOTE | 2022-06-12 23:25 | NUR ---
TAKEN TO RADIOLOGY
[2022-06-12 23:26] LABS: BILIRUBIN,URINE NEGATIVE (NEGATIVE); COLOR,URINE YELLOW (YELLOW); LEUKOCYTE ESTERASE ,URINE TRACE (NEGATIVE); NITRITE, URINE NEGATIVE (NEGATIVE); PROTEIN,URINE NEGATIVE (NEGATIVE); UGLUCOSE NEGATIVE (NEGATIVE)
[2022-06-12 23:50] LABS: BACTERIA,URINE Moderate /HPF (None Seen); RBC,URINE 0-2 /HPF (0-2); SQUAMOUS EPITHELIAL CELL,UR Few /HPF (None Seen)
--- NOTE | 2022-06-13 01:44 | NUR ---
US AT BEDSIDE
[2022-06-13] MEDS ORDERED: IOHEXOL-300 100 ML VIAL IV ONE (02:08)
[2022-06-13] MEDS ORDERED: CT SWABBABLE VALVE TRANS SET 1 EA INFUS.SET MC ONE (02:08)
[2022-06-13] MEDS ORDERED: IV NS 0.9% 250 ML IV ONE (02:08)
--- NOTE | 2022-06-13 03:43 | NUR ---
Patient is resting comfortably in bed with eyes closed. Easily aroused. VSS
[2022-06-13] MEDS ORDERED: ONDANSETRON HCL/PF 4 MG/2 ML VIAL IVP PRN (05:30)
[2022-06-13] MEDS ORDERED: MORPHINE SULFATE INJ 2 MG/ML DISP.SYRIN IV PRN (05:30)
[2022-06-13] MEDS ORDERED: ACETAMINOPHEN 325 MG TABLET PO PRN (05:30)
[2022-06-13] MEDS ORDERED: DEXTROSE 50%-WATER 50 ML DISP.SYRIN IV PRN (05:30)
[2022-06-13] MEDS ORDERED: ENOXAPARIN SODIUM 40 MG/0.4 ML DISP.SYRIN SQ SCH (05:30)
--- NOTE | 2022-06-13 07:10 | NUR ---
lactic acid 2.0, aware
--- NOTE | 2022-06-13 07:13 | NUR ---
GAVE REPORT TO LEFTY HERNÁNDEZ FOR ELMIRA
[2022-06-13] MEDS ORDERED: ENOXAPARIN SODIUM 40 MG/0.4 ML DISP.SYRIN SQ ONE (07:18)
[2022-06-13] MEDS: BLOOD SUGAR DIAGNOSTIC 1 EACH STRIP VI SCH ×4 (07:27→21:37)
--- NOTE | 2022-06-13 07:32 | NUR ---
BS = 150
--- NOTE | 2022-06-13 07:33 | NUR ---
lovenox admin SQ no adverse side effects noted
[2022-06-13] MEDS ORDERED: MAGN400O6 GT (08:19)
[2022-06-13] MEDS ORDERED: INSU100V42 (08:19)
[2022-06-13] MEDS ORDERED: POLY17PO4 GT (08:19)
[2022-06-13] MEDS ORDERED: NA P133E RC (08:19)
[2022-06-13] MEDS ORDERED: CHOL200013 GT (08:19)
[2022-06-13] MEDS ORDERED: FAMO20TA8 GT (08:19)
[2022-06-13] MEDS ORDERED: ATOR10TA GT (08:19)
[2022-06-13] MEDS ORDERED: NUT.250L18 (08:19)
[2022-06-13] MEDS ORDERED: LEVA0.6320 IH (08:19)
[2022-06-13] MEDS ORDERED: DIVA500T2 GT ×2 (08:19)
[2022-06-13] MEDS ORDERED: BISA10SU11 RC (08:19)
[2022-06-13] MEDS ORDERED: ACET325T53 GT (08:19)
--- NOTE | 2022-06-13 09:08 | NUR ---
ROOM ASSIGNED 325.1, ADMITTING MADE AWARE
[2022-06-13] MEDS: CEFTRIAXONE 1 G in IV D5W 50 ML IV SCH ×2 (09:31→09:33)
[2022-06-13] MEDS ORDERED: CEFTRIAXONE 1GM BAG (ER ONLY) 50 ML IV ONE (09:32)
[2022-06-13 10:30] VITALS: BP 104/57
--- NOTE | 2022-06-13 10:45 | NUR ---
RN ADMITTING NOTES RECEIVED PATIENT VIA ALEJANDRINA ACCOMPANIED BY ONE ER STAFF. A/Ox1, TO SELF, EPISODES OF CONFUSION. PATIENT ON 2L OF O2 VIA NC, NO S/S OF RESPIRATORY DISTRESS OR DISCOMFORT. PATIENT TRANSFERRED TO BED, IV ACCESS R AC #20G, INTACT AND PATENT. V/S TAKEN AND STABLE. FULL BODY CHECK COMPLETED: HEART SOUNDS WNL, LUNG SOUNDS WNL, GI/: G-TUBE PRESENT, INTACT, NO FEEDING RUNNING DUE TO EPISODES OF NAUSEA AND VOMITING, SKIN ISSUES: SACRAL SCAR AND R HEEL DRYNESS. PHOTOS TAKEN AND FILED INTO CHART. SAFETY MEASURES IN PLACE: BED LOCKED AND IN LOWEST POSITION, SIDE RAILS UPx3, BED ALARM ON, CALL LIGHT WITHIN REACH. WILL CONTINUE TO MONITOR.
[2022-06-13 11:22] VITALS: BP 104/56
[2022-06-13] MEDS: IV NS 0.9% 1,000 ML IV PRN (12:19)
[2022-06-13] MEDS: INSULIN REGULAR, HUMAN 100 UNIT/ML 3 ML VIAL SQ PRN (12:20)
[2022-06-13] MEDS: GLUCERNA 1.2 1,000 ML BOTTLE NG PRN (13:30)
--- NOTE | 2022-06-13 13:35 | NUR ---
RN NOTES BS CHECKED 152, NO COVERAGE GIVEN, GLUCERNA FEEDING STARTED AT 20CC/HR WILL CONTINUE TO MONITOR FOR EPISODES OF NAUSEA AND VOMITING.
--- NOTE | 2022-06-13 14:54 | NUR ---
RN NOTES PATIENT NOTED WITH GAGGING AND ASKED IF HE HAS NAUSEA, PATIENT CONFIRMED, FEEDING STOPPED WILL CONTINUE TO MONITOR.
[2022-06-13 15:56] VITALS: BP 107/60
--- NOTE | 2022-06-13 16:50 | NUR ---
RN NOTES FEEDING RESTARTED, WILL CONTINUE TO MONITOR FOR EPISODES OF NAUSEA AND VOMITING.
--- NOTE | 2022-06-13 18:44 | NUR ---
MS RN CLOSING NOTES PATIENT AWAKE IN BED, A/Ox1, WITH EPISODES OF CONFUSION. STABLE ON 3L OF O2 VIA NC. NO S/S OF RESPIRATORY DISTRESS. IV ACCESS R AC #20G, RUNNING NS @75ML/HR, INTACT AND PATENT. NO S/S OF INFILTRATION. INCONTINENT USES DIAPER. HAS G-TUBE, RUNNING GLUCERNA 20CC/HR, OCCASIONAL EPISODES OF NAUSEA PRESENT, FEEDING STOPPED WHEN NOTED, CURRENTLY RUNNING AND TOLERATING WELL. ALL PRESCRIBED MEDICATION ADMINISTERED. SKIN ISSUES: SACRAL SCAR AND R HEEL DRYNESS. SAFETY MEASURES MAINTAINED: BED LOCKED AND IN LOWEST POSITION, CALL LIGHT WITHIN REACH, SIDE RAILS UPx3, BED ALARM ON, HOB ELEVATED. WILL ENDORSE TO NEXT SHIFT ANY ELMIRA.
--- NOTE | 2022-06-13 19:43 | NUR ---
MS RN OPENING NOTE PATIENT AWAKE IN BED, ALERT/ORIENTED X 1. PATIENT STABLE ON 2 LPM OF O2 VIA NASAL CANNULA (PATIENT REMOVES AT TIMES), NO S/S OF DISTRESS OR SOB NOTED, BREATHING EVEN AND UNLABORED. IV ACCESS ON RAC #20G INTACT AND INFUSING NS @ 75 ML/HR. PATIENT HAS GT FEEDING GLUCERNA 1.2 @ 20 ML/HR, WILL CONTINUE TO MONITOR FOR N/V. SAFETY MEASURES IN PLACE: CALL LIGHT WITHIN REACH, SIDE RAILS UP X 3, BED LOCKED IN LOWEST POSITION, HOB ELEVATED, BED ALARM ON. WILL CONTINUE TO MONITOR PATIENT
[2022-06-13 20:19] VITALS: BP 115/76
[2022-06-13] MEDS: *INSULIN REGULAR(HUMULIN R)HUM 100 UNIT/ML VIAL SQ PRN (21:39)
[2022-06-14] MEDS: ENOXAPARIN SODIUM 40 MG/0.4 ML DISP.SYRIN SQ SCH (06:20)
[2022-06-14] MEDS: BLOOD SUGAR DIAGNOSTIC 1 EACH STRIP VI SCH ×4 (06:40→21:32)
[2022-06-14] MEDS: INSULIN REGULAR, HUMAN 100 UNIT/ML 3 ML VIAL SQ PRN ×3 (06:45→16:52)
[2022-06-14 07:03] LABS: BASOPHILS % (AUTO) 0.4 % (0.0-2.0); EOSINOPHILS % (AUTO) 0.9 % (0.0-6.0); HEMATOCRIT 41 % (39-51); HEMOGLOBIN 13.4 g/dL (13.5-17.5); LYMPHOCYTES # (AUTO) 0.7 K/uL (0.8-4.8); MEAN CORPUSCULAR HGB CONC 33 g/dl (31.0-36.0); MEAN CORPUSCULAR VOLUME 96 fL (80-96); MONOCYTES # (AUTO) 0.6 K/uL (0.1-1.30); MONOCYTES % (AUTO) 8.5 % (2.0-12.0); NEUTROPHILS # (AUTO) 5.3 K/uL (1.8-8.9); NEUTROPHILS % (AUTO) 80.2 % (43.0-81.0); PLATELET COUNT (AUTO) 146 K/uL (150-450); RED BLOOD CELL COUNT(AUTO) 4.25 MIL/uL (4.5-6.0); WHITE BLOOD COUNT (AUTO) 6.6 K/uL (4.3-11.0)
--- NOTE | 2022-06-14 07:03 | NUR ---
MS RN CLOSING NOTE PATIENT AWAKE IN BED, ALERT/ORIENTED X 1, PRIMARILY SPEAKS TAGALOG. PATIENT STABLE ON 2 LPM OF O2 VIA NASAL CANNULA (PATIENT REMOVES AT TIMES), NO S/S OF DISTRESS OR SOB NOTED, BREATHING EVEN AND UNLABORED. IV ACCESS ON RAC #20G INTACT AND INFUSING NS @ 75 ML/HR. PATIENT HAS GT FEEDING GLUCERNA 1.2 @ 20 ML/HR. MEDICATIONS GIVEN ORDERED, PT NEEDS MET THROUGHOUT SHIFT, NO N/V THIS SHIFT, PATIENT TURNED Q2H. SAFETY MEASURES IN PLACE: CALL LIGHT WITHIN REACH, SIDE RAILS UP X 3, BED LOCKED IN LOWEST POSITION, HOB ELEVATED, BED ALARM ON. WILL ENDORSE TO DAYSHIFT RN FOR CONTINUITY OF CARE
--- NOTE | 2022-06-14 07:05 | NUR ---
MS RN OPENING NOTES PATIENT AWAKE IN BED, A/Ox1, WITH EPISODES OF CONFUSION. ON 3L OF O2 VIA NC. NO S/S OF RESPIRATORY DISTRESS, PATIENT REMOVES NC AT TIMES. IV ACCESS R AC #20G, RUNNING NS @75ML/HR, INTACT AND PATENT. NO S/S OF INFILTRATION. INCONTINENT USES DIAPER. HAS G-TUBE, RUNNING GLUCERNA 20CC/HR, CURRENTLY RUNNING AND TOLERATING WELL. SKIN ISSUES: SACRAL SCAR AND R HEEL DRYNESS. SAFETY MEASURES IN PLACE: BED LOCKED AND IN LOWEST POSITION, CALL LIGHT WITHIN REACH, SIDE RAILS UPx3, BED ALARM ON, HOB ELEVATED. WILL CONTINUE TO MONITOR.
[2022-06-14 07:41] LABS: ALBUMIN 2.9 g/dL (3.4-5.0); BILIRUBIN,TOTAL 0.4 mg/dL (0.2-1.0); CALCIUM, SERUM 8.5 mg/dL (8.5-10.1); CREATININE 1.1 mg/dL (0.6-1.3); MAGNESIUM 2.4 mg/dL (1.8-2.4); PHOSPHORUS 3.2 mg/dL (2.5-4.9); POTASSIUM 3.9 mmol/L (3.5-5.1); TOTAL PROTEIN, SERUM 6.6 g/dL (6.4-8.2)
[2022-06-14] MEDS: CEFTRIAXONE 1 G in IV D5W 50 ML IV SCH (08:28)
[2022-06-14 08:34] VITALS: BP 115/60
--- NOTE | 2022-06-14 12:15 | NUR ---
RN NOTES PATIENT PICKED UP FOR MRI ACCOMPANIED BY THREE TECHS. PATIENT STABLE ON ROOM AIR, NO S/S OF RESPIRATORY DISTRESS. WILL AWAIT RETURN.
--- NOTE | 2022-06-14 13:29 | NUR ---
RN NOTES PATIENT RETURNED FROM ER, STABLE, NO S/S OF DISTRESS. SON, JOEY NOW AT BEDSIDE.
[2022-06-14 16:17] VITALS: BP 121/70
--- NOTE | 2022-06-14 18:36 | NUR ---
MS RN CLOSING NOTES PATIENT AWAKE IN BED, A/Ox1, WITH EPISODES OF CONFUSION. STABLE ON 3L OF O2 VIA NC. NO S/S OF RESPIRATORY DISTRESS. IV ACCESS R AC #20G, RUNNING NS @75ML/HR, INTACT AND PATENT. NO S/S OF INFILTRATION. INCONTINENT USES DIAPER. HAS G-TUBE, RUNNING GLUCERNA 20CC/HR, TOLERATING WELL. ALL PRESCRIBED MEDICATION ADMINISTERED. SKIN ISSUES: SACRAL SCAR AND R HEEL DRYNESS. SAFETY MEASURES MAINTAINED: BED LOCKED AND IN LOWEST POSITION, CALL LIGHT WITHIN REACH, SIDE RAILS UPx3, BED ALARM ON, HOB ELEVATED. WILL ENDORSE TO NEXT SHIFT ANY ELMIRA.
--- NOTE | 2022-06-14 20:02 | NUR ---
MS RN OPENING NOTES PATIENT AWAKE IN BED, A/Ox1, WITH EPISODES OF CONFUSION. STABLE ON 2L OF O2 VIA NC. NO S/S OF RESPIRATORY DISTRESS. IV ACCESS R AC #20G, RUNNING NS @75ML/HR, INTACT AND PATENT. NO S/S OF INFILTRATION. HAS G-TUBE, RUNNING GLUCERNA 20CC/HR, TOLERATING WELL. SAFETY MEASURES MAINTAINED: BED LOCKED AND IN LOWEST POSITION, CALL LIGHT WITHIN REACH, SIDE RAILS UPx3, BED ALARM ON, HOB ELEVATED.
[2022-06-14] MEDS: *INSULIN REGULAR(HUMULIN R)HUM 100 UNIT/ML VIAL SQ PRN (21:33)
[2022-06-14 21:40] VITALS: BP 129/66
[2022-06-15] MEDS: IV NS 0.9% 1,000 ML IV PRN ×2 (05:08→21:39)
[2022-06-15] MEDS: ENOXAPARIN SODIUM 40 MG/0.4 ML DISP.SYRIN SQ SCH (06:07)
[2022-06-15] MEDS: INSULIN REGULAR, HUMAN 100 UNIT/ML 3 ML VIAL SQ PRN ×2 (06:09→17:52)
[2022-06-15] MEDS: BLOOD SUGAR DIAGNOSTIC 1 EACH STRIP VI SCH ×4 (06:35→21:33)
--- NOTE | 2022-06-15 06:57 | NUR ---
MS RN CLOSING NOTES PATIENT AWAKE IN BED, A/Ox2, WITH EPISODES OF CONFUSION. STABLE ON 2L OF O2 VIA NC PRN . NO S/S OF RESPIRATORY DISTRESS. IV ACCESS RAC #20G, RUNNING NS @75ML/HR, INTACT AND PATENT. NO S/S OF INFILTRATION. HAS G-TUBE, RUNNING GLUCERNA 20CC/HR, TOLERATING WELL. SAFETY MEASURES MAINTAINED: BED LOCKED AND IN LOWEST POSITION, CALL LIGHT WITHIN REACH, SIDE RAILS UPx3, BED ALARM ON, HOB ELEVATED. WILL ENDORSE CARE TO DAY SHIFT NURSE.
--- NOTE | 2022-06-15 07:18 | NUR ---
MS RN OPENING NOTES PATIENT AWAKE IN BED, A/Ox1, COHERENT, ABLE TO MAKE NEEDS KNOWN. ON ROOM AIR WITH EQUAL AND UNLABORED BREATHING, WITH NO SIGNS OF RESPIRATORY DISTRESS. IV ACCESS R AC #20G, RUNNING NS @75ML/HR, INFUSING WELL. WITH G-TUBE ON GLUCERNA RUNNING AT 20CC/HR, TOLERATING WELL. SAFETY MEASURES MAINTAINED: BED LOCKED AND IN LOWEST POSITION, CALL LIGHT WITHIN REACH, SIDE RAILS UPx3, BED ALARM ON, HOB ELEVATED. WILL CONTINUE WITH PLAN OF CARE.
[2022-06-15 08:00] VITALS: BP 132/74
--- NOTE | 2022-06-15 08:10 | NUR ---
MS RN NOTE SEEN BY DR. GOYAL.
[2022-06-15] MEDS ORDERED: Z GUARD REMEDY 4 OZ OINT TP PRN (11:00)
[2022-06-15 11:08] LABS: AFP, TUMOR MARKER 3.1 ng/mL (0.0-8.4)
[2022-06-15] MEDS: CEFTRIAXONE 1 G in IV D5W 50 ML IV SCH (11:14)
[2022-06-15] MEDS: *INSULIN REGULAR(HUMULIN R)HUM 100 UNIT/ML VIAL SQ PRN ×2 (12:58→21:35)
--- NOTE | 2022-06-15 14:10 | NUR ---
MS RN NOTE REFERRED PATIENT TO DIETITIAN WITH RECOMMENDATION TO INCREASE G-TUBE FEEDING BY 10ML/HR UNTIL 55 ML IS REACHED.
[2022-06-15 16:00] VITALS: BP 140/76
[2022-06-15] MEDS: GLUCERNA 1.2 1,000 ML BOTTLE NG PRN (18:30)
--- NOTE | 2022-06-15 18:47 | NUR ---
MS RN CLOSING NOTES PATIENT AWAKE IN BED, A/Ox1, COHERENT, ABLE TO MAKE NEEDS KNOWN. ON ROOM AIR WITH EQUAL AND UNLABORED BREATHING, WITH NO SIGNS OF RESPIRATORY DISTRESS. IV ACCESS R AC #20G, RUNNING NS @75ML/HR, INFUSING WELL. WITH G-TUBE ON GLUCERNA RUNNING AT 40CC/HR, TOLERATING WELL. SAFETY MEASURES MAINTAINED: BED LOCKED AND IN LOWEST POSITION, CALL LIGHT WITHIN REACH, SIDE RAILS UPx3, BED ALARM ON, HOB ELEVATED. WILL ENDORSE TO NEXT SHIFT FOR CONTINUITY OF CARE.
--- NOTE | 2022-06-15 19:30 | NUR ---
MS RN OPENING NOTE RECEIVED PATIENT IN BED, WITH HOB ELEVATED, AWAKE, ALERT AND ORIENTED X1 WITH CONFUSION. AFEBRILE AND NOT IN ANY FORM OF ACUTE DISTRESS. ON O2 INHALATION VIA NASAL CANNULA AT 2LPM. WITH INTACT G-TUBE AND WITH ONGOING FEEDING OF GLUCERNA 1.2 AT 40ML/HR. SAFETY MEASURES IN PLACE. KEPT BED IN LOCKED AND IN LOW POSITION. SIDE RAILS UP X2. ADVISED TO USE THE CALL LIGHT WHEN IN NEED OF ASSISTANCE.
[2022-06-15 20:00] VITALS: BP 137/69
[2022-06-16] MEDS: ENOXAPARIN SODIUM 40 MG/0.4 ML DISP.SYRIN SQ SCH (05:25)
--- NOTE | 2022-06-16 06:29 | NUR ---
PATIENT IN BED, WITH HOB ELEVATED, ASLEEP BUT EASY TP AROUSE AND RESPONSIVE. AFEBRILE AND NOT IN ANY FORM OF ACUTE DISTRESS. ON O2 INHALATION VIA NASAL CANNULA AT 2LPM. WITH INTACT G-TUBE AND WITH ONGOING FEEDING OF GLUCERNA 1.2 AT 50ML/HR. WITH IV ACCESS ON RAC 20G RUNNING WITH NS AT 75ML/HR. MONITORED FOR ANY S/SX. OF HYPO/HYPERGLYCEMIA. MEDICATED ORDERED. ENCOURAGED TO TURN AND REPOSITION EVERY 2 HOURS AND TOLERATED TO PROMOTE PROPER CIRCULATION AND COMFORT. SAFETY MEASURES IN PLACE. KEPT BED IN LOCKED AND IN LOW POSITION. SIDE RAILS UP X2. ADVISED TO USE THE CALL LIGHT WHEN IN NEED OF ASSISTANCE. ALL NURSING NEEDS ATTENDED. ENDORSED TO INCOMING SHIFT FOR CONTINUITY OF CARE.
[2022-06-16] MEDS: BLOOD SUGAR DIAGNOSTIC 1 EACH STRIP VI SCH ×4 (06:32→21:30)
[2022-06-16] MEDS: INSULIN REGULAR, HUMAN 100 UNIT/ML 3 ML VIAL SQ PRN ×2 (06:37→13:06)
[2022-06-16 07:00] VITALS: BP 133/64
--- NOTE | 2022-06-16 07:30 | NUR ---
MS RN OPENING NOTES PATIENT AWAKE IN BED, A/Ox2, COHERENT, ABLE TO MAKE NEEDS KNOWN. ON ROOM AIR WITH EQUAL AND UNLABORED BREATHING, WITH NO SIGNS OF RESPIRATORY DISTRESS. IV ACCESS R AC #20G, RUNNING NS @75ML/HR, INTACT AND PATENT. WITH G-TUBE ON GLUCERNA RUNNING AT 50CC/HR, TOLERATING WELL. SAFETY MEASURES MAINTAINED: BED LOCKED AND IN LOWEST POSITION, CALL LIGHT WITHIN REACH, SIDE RAILS UPx3, BED ALARM ON, HOB ELEVATED. WILL CONTINUE WITH PLAN OF CARE.
[2022-06-16] MEDS: CEFTRIAXONE 1 G in IV D5W 50 ML IV SCH (09:01)
--- NOTE | 2022-06-16 11:35 | NUR ---
RN NOTES PATIENT IS SEEN BY NUBIA ANAND.
[2022-06-16] MEDS: IV NS 0.9% 1,000 ML IV PRN (13:00)
[2022-06-16 14:11] LABS: PROSTATE SPECIFIC ANTIGEN SCR 0.94 ng/mL (0.00-4.00); THYROID STIMULATING HORMONE 3.776 uIU/mL (0.358-3.74)
--- NOTE | 2022-06-16 15:30 | NUR ---
MS NURSE NOTES PATIENT VERBALIZES ABDOMINAL DISCOMFORT WAS GIVEN TYLENOL. WILL CONTINUE TO MONITOR.
[2022-06-16] MEDS: GLUCERNA 1.2 1,000 ML BOTTLE NG PRN (17:09)
--- NOTE | 2022-06-16 18:46 | NUR ---
MS RN CLOSING NOTES PATIENT AWAKE IN BED, A/Ox1, COHERENT, ABLE TO MAKE NEEDS KNOWN. ON ROOM AIR WITH EQUAL AND UNLABORED BREATHING, WITH NO SIGNS OF RESPIRATORY DISTRESS. IV ACCESS R AC #20G, RUNNING NS @75ML/HR, INFUSING WELL. WITH G-TUBE ON GLUCERNA RUNNING AT 55CC/HR, TOLERATING WELL. SAFETY MEASURES MAINTAINED: BED LOCKED AND IN LOWEST POSITION, CALL LIGHT WITHIN REACH, SIDE RAILS UPx3, BED ALARM ON, HOB ELEVATED. WILL ENDORSE TO NEXT SHIFT FOR CONTINUITY OF CARE.
--- NOTE | 2022-06-16 19:30 | NUR ---
MS RN OPENING NOTE RECEIVED PATIENT IN BED, WITH HOB ELEVATED, AWAKE, ALERT AND ORIENTED X1 WITH CONFUSION. AFEBRILE AND NOT IN ANY FORM OF ACUTE DISTRESS. ON O2 INHALATION VIA NASAL CANNULA AT 2LPM. NO C/O PAIN OR DISCOMFORT AT THIS TIME. WITH INTACT G-TUBE AND WITH ONGOING FEEDING OF GLUCERNA 1.2 AT 55ML/HR. SAFETY MEASURES IN PLACE. KEPT BED IN LOCKED AND IN LOW POSITION. SIDE RAILS UP X2. ADVISED TO USE THE CALL LIGHT WHEN IN NEED OF ASSISTANCE.
[2022-06-16] MEDS: *INSULIN REGULAR(HUMULIN R)HUM 100 UNIT/ML VIAL SQ PRN (21:33)
[2022-06-17] MEDS: IV NS 0.9% 1,000 ML IV PRN ×2 (01:33→17:29)
[2022-06-17] MEDS: ENOXAPARIN SODIUM 40 MG/0.4 ML DISP.SYRIN SQ SCH (05:26)
--- NOTE | 2022-06-17 06:30 | NUR ---
MS RN CLOSING NOTE PATIENT IN BED, WITH HOB ELEVATED, ASLEEP BUT EASY TO AROUSE AND RESPONDS TO VERBAL AND TACTILE STIMULI. AFEBRILE AND NOT IN ANY FORM OF ACUTE DISTRESS. ON O2 INHALATION VIA NASAL CANNULA AT 2LPM. NO C/O PAIN OR DISCOMFORT THROUGHOUT THE SHIFT. WITH INTACT G-TUBE, NO RESIDUAL NOTED. MONITORED FOR ANY S/SX. OF HYPO/HYPERGLYCEMIA. MAINTAINED ON NPO ORDERED. SAFETY MEASURES IN PLACE. KEPT BED IN LOCKED AND IN LOW POSITION. SIDE RAILS UP X2. ADVISED TO USE THE CALL LIGHT WHEN IN NEED OF ASSISTANCE. ALL NURSING NEEDS ATTENDED. ENDORSED TO INCOMING SHIFT FOR CONTINUITY OF CARE.
[2022-06-17] MEDS: BLOOD SUGAR DIAGNOSTIC 1 EACH STRIP VI SCH ×4 (06:36→22:32)
--- NOTE | 2022-06-17 07:21 | NUR ---
MS OLEA OPENING NOTES RECEIVED PT AWAKE IN BED, A/O X 1. VERBALLY RESPONSIVE WITH CONFUSION. IV ACCESS AT RAC #20G INTACT WITH ONGOING IVF OF NS AT 75ML/HR INFUSING WELL, NO S/S OF INFILTRATION AT SITE NOTED. ON O2 VIA NC AT 2LPM, TOLERATING WELL, BREATHING EVENLY AND UNLABORED. NO SIGNS OF ACUTE DISTRESS. PT ON NPO, FOR CT LIVER BIOPSY TODAY. SAFETY MEASURE IN PLACE: BED IN LOWEST POSITION AND LOCKED, BED ALARM ON, CALL LIGHT W/I REACH, SIDE RAILS UP X 3. WILL CONTINUE TO MONITOR PT THROUGHOUT SHIFT. Addendum: 06/17/22 at 0947 by Diana Dhillon RN ADDENDUM: PT WITH G TUBE IN PLACE, CLAMPED AT THIS TIME. PT NPO.
[2022-06-17 08:00] VITALS: BP 116/75
[2022-06-17] MEDS: CEFTRIAXONE 1 G in IV D5W 50 ML IV SCH (08:05)
--- NOTE | 2022-06-17 11:00 | NUR ---
RN NOTES RN JAVIER SPOKE TO KINJAL REGARDING PT'S CT CHEST WITHOUT CONTRACT AND CT LIVER BIOPSY, KINJAL STATED THAT THEY WILL DO IT THIS AFTERNOON.
[2022-06-17] MEDS: INSULIN REGULAR, HUMAN 100 UNIT/ML 3 ML VIAL SQ PRN (11:19)
--- NOTE | 2022-06-17 15:14 | NUR ---
RN NOTES CALLED CT DEPARTMENT AND ASKED WHAT TIME THEY WILL DO CT CHEST W/O CONTRAST AND CT BIOPSY OF LIVER. SPOKED TO MEI AND STATED THAT THEY'RE OVERWHELM WITH PROCEDURES TODAY AND THAT THEY WILL DO THE CT TOMORROW.
[2022-06-17 16:00] VITALS: BP 144/72
[2022-06-17] MEDS: *INSULIN REGULAR(HUMULIN R)HUM 100 UNIT/ML VIAL SQ PRN ×2 (17:17→22:41)
--- NOTE | 2022-06-17 18:43 | NUR ---
MS RN CLOSING NOTES PT IN BED AWAKE AT THIS TIME. HOB ELEVATED. A/O X 1-2. VERBALLY RESPONSIVE WITH CONFUSION. ON O2 VIA NC AT 1LPM, TOLERATING WELL, BREATHING EVENLY AND UNLABORED. NO SIGNS OF ACUTE DISTRESS NOTED. IV ACCESS AT RAC #20G INTACT WITH ONGOING IVF OF NS AT 75ML/HR INFUSING WELL, NO S/S OF INFILTRATION AT SITE NOTED. G TUBE IN PLACE WITH FEEDING OF GLUCERNA 1.2 @ 55ML/HR ON GOING. TOLERTAED WELL. ASPIRATION PRCAUTIONS MAINTAINED. NPO POST MIDNIGHT TO BE ENFORCED, CT CHEST WITHOUT CONTRAST AND CT LIVER BIOPSY RESCHEDULED TOMORROW (06/18/21) PER ELECTRICAL PROSPECTING OBSERVER MEI. PT TURNED AND REPOSITIONED Q 2HRS AND PRN. ALL NEEDS/CARE ATTENDED WELL. SAFETY MEASURES IN PLACE: BED IN LOWEST POSITION AND LOCKED, BED ALARM ON, CALL LIGHT W/I REACH, SIDE RAILS UP X 3. WILL ENDORSE ELMIRA IN DIRECTOR OF FINANCIAL PLANNING.
--- NOTE | 2022-06-17 19:40 | NUR ---
MS RN OPENING NOTE RECEIVED PATIENT IN BED, WITH HOB ELEVATED, AWAKE, ALERT AND ORIENTED X1-2, WITH CONFUSION. NO S/S OF ACUTE DISTRESS, NO S/S OF PAIN NOTED. ON O2 INHALATION VIA NASAL CANNULA AT 2 LPM. WITH INTACT G-TUBE AND WITH ONGOING FEEDING OF GLUCERNA 1.2 AT 50ML/HR. SAFETY MEASURES IN PLACE. BED LOCKED AND IN LOW POSITION. SIDE RAILS UP X2. CALL LIGHT WITHIN REACH. WILL CONTINUE TO MONITOR PT.
[2022-06-17 20:00] VITALS: BP 122/57
[2022-06-18] MEDS: ENOXAPARIN SODIUM 40 MG/0.4 ML DISP.SYRIN SQ SCH (06:00)
[2022-06-18 06:23] LABS: BASOPHILS % (AUTO) 0.6 % (0.0-2.0); EOSINOPHILS % (AUTO) 1.7 % (0.0-6.0); HEMATOCRIT 39 % (39-51); LYMPHOCYTES # (AUTO) 0.8 K/uL (0.8-4.8); LYMPHOCYTES % (AUTO) 14.8 % (20.0-44.0); MEAN CORPUSCULAR HGB CONC 34 g/dl (31.0-36.0); MEAN CORPUSCULAR VOLUME 95 fL (80-96); MONOCYTES # (AUTO) 0.5 K/uL (0.1-1.30); MONOCYTES % (AUTO) 8.9 % (2.0-12.0); NEUTROPHILS # (AUTO) 3.8 K/uL (1.8-8.9); PLATELET COUNT (AUTO) 146 K/uL (150-450); RED BLOOD CELL COUNT(AUTO) 4.05 MIL/uL (4.5-6.0); WHITE BLOOD COUNT (AUTO) 5.1 K/uL (4.3-11.0)
--- NOTE | 2022-06-18 06:40 | NUR ---
MS RN CLOSING NOTE PT IN BED AWAKE AT THIS TIME. HOB ELEVATED. A/O X 1-2. VERBALLY RESPONSIVE WITH CONFUSION. ON O2 VIA NC AT 1LPM, TOLERATING WELL, BREATHING EVENLY AND UNLABORED. NO SIGNS OF ACUTE DISTRESS NOTED. IV ACCESS AT RAC #20G INTACT WITH ONGOING IVF OF NS AT 75ML/HR INFUSING WELL, NO S/S OF INFILTRATION AT SITE NOTED. G TUBE IN PLACE WITH FEEDING OF GLUCERNA 1.2 @ 55ML/HR WAS STOPPED AT MIDNIGHT DUE TO PT NPO D/T NEEDLE LIVER BIOPSY SCHEDULE FOR MORNING. CONSENT ALREADY SIGNED. ASPIRATION PRECAUTIONS MAINTAINED. CT CHEST WITHOUT CONTRAST AND CT LIVER BIOPSY RESCHEDULED TODAY. PT TURNED AND REPOSITIONED Q 2HRS AND PRN. ALL NEEDS/CARE ATTENDED WELL. SAFETY MEASURES IN PLACE: BED IN LOWEST POSITION AND LOCKED, BED ALARM ON, CALL LIGHT W/I REACH, SIDE RAILS UP X 3. WILL ENDORSE AM SHIFT NURSE FOR ELMIRA.
[2022-06-18] MEDS: BLOOD SUGAR DIAGNOSTIC 1 EACH STRIP VI SCH ×4 (06:50→18:17)
[2022-06-18 07:00] VITALS: BP 120/59
--- NOTE | 2022-06-18 07:00 | NUR ---
OPENING NOTES PT AWAKE, A/O X1-2. ORIENTED TO STAFF & UNIT. PT ON 2 L OF O2. TOLERATING WELL, BREATHING EVEN & UNLABORED AT THIS TIME. PT W/ IV ACCESS, PRESENT ON RIGHT ARM #20 GAUGE, PATENT, INTACT, FLUSHES WELL. PT. SAFETY MEASURES IN PLACED. BED IN LOWEST, LOCKED POSITION, SIDERAILS UP X 2, BEDSIDE TABLE AND CALL LIGHT IN EASY REACH. TO CONTINUE TO MONITOR PT ACCORDINGLY.
[2022-06-18] MEDS: CEFTRIAXONE 1 G in IV D5W 50 ML IV SCH (09:51)
[2022-06-18 11:07] LABS: IMMUNOGLOBULIN A, SERUM 139 mg/dL (61-437); IMMUNOGLOBULIN G, SERUM 1258 mg/dL (603-1613); IMMUNOGLOBULIN M, SERUM 85 mg/dL (15-143)
[2022-06-18 13:07] LABS: *SPE A/G RATIO 0.8 (0.7-1.7); *SPE ALPHA-1-GLOBULIN 0.2 g/dL (0.0-0.4); *SPE ALPHA-2-GLOBULIN 0.9 g/dL (0.4-1.0); *SPE BETA GLOBULIN 0.9 g/dL (0.7-1.3); *SPE M-SPIKE Not Observed g/dL (Not Observed)
[2022-06-18] MEDS ORDERED: FLUMAZENIL 0.5 MG VIAL IV PRN (14:30)
[2022-06-18] MEDS ORDERED: NALOXONE PREFILLED SYRINGE 2 MG/2 ML SYRINGE IV PRN (14:30)
[2022-06-18] MEDS: MIDAZOLAM HCL 2 MG/2ML VIAL IV PRN ×2 (14:52→14:59)
[2022-06-18] MEDS: FENTANYL PF 250MCG/5ML AMPUL IV PRN ×2 (14:52→14:59)
[2022-06-18] MEDS ORDERED: MIDAZOLAM HCL 2 MG/2ML VIAL IV ONE (15:43)
[2022-06-18] MEDS ORDERED: FENTANYL PF 100MCG/2ML AMPUL IV ONE (15:43)
[2022-06-18 16:00] VITALS: BP 148/90
[2022-06-18] MEDS: GLUCERNA 1.2 1,000 ML BOTTLE NG PRN (17:04)
--- NOTE | 2022-06-18 19:00 | NUR ---
RN MS NOTES PT IN BED, AWAKE, ALERT TO SELF, VERBALLY RESPONSIVE, WITH PERIODS OF CONFUSION AND BEING FORGETFUL, DENIES PAIN, NOT IN DISTRESS, COMPLETED CT LIVER BIOPSY AND CT CHEST TODAY, TOLERATED WELL, RESTARTED ON TUBE FEEDING, PM CARE PROVIDED, SEEN BY DR. ZIMMER TODAY, ALL NEEDS ATTENDED.
--- NOTE | 2022-06-18 19:36 | NUR ---
RN OPENING NOTES; RECEIVED PT AWAKE IN BED A/O X1-2.ON 2L O2 VIA NC TOLERATING WELL SATTING 97.6%,NO SOB/DISTRESS NOTED,BREATHING EVEN & UNLABORED,NO COMPLAIN OF PAIN/DISCOMFORT AT THIS TIME, IV ACCESS ON RIGHT ARM #20 GAUGE WITH NS 75ML/HR,SAFETY MEASURES IN PLACED. BED IN LOWEST, LOCKED POSITION, SIDERAILS UP X 2, BEDSIDE TABLE AND CALL LIGHT IN EASY REACH.WILL CONTINUE TO MONITOR.
[2022-06-19 04:48] VITALS: BP 117/66
[2022-06-19] MEDS: ENOXAPARIN SODIUM 40 MG/0.4 ML DISP.SYRIN SQ SCH (05:02)
--- NOTE | 2022-06-19 06:15 | NUR ---
RN CLOSING NOTES; PT AWAKE IN BED A/O X1-2.ON 2L O2 VIA NC TOLERATING WELL SATTING 99%,NO SOB/DISTRESS NOTED,BREATHING EVEN & UNLABORED,NO COMPLAIN OF PAIN/DISCOMFORT DURING SHIFT,DUE MEDS GIVEN ORDR,ALL NEEDS ATTENDED, IV ACCESS ON RIGHT ARM #20 GAUGE WITH NS 75ML/HR,SAFETY MEASURES IN PLACED.GTUBE GLUCERNA 1.2 @55ML/HR TONI WELL ,NO RESIDUAL NOTED,HOB ELEVATED AT ALL TIME. BED IN LOWEST, LOCKED POSITION, SIDERAILS UP X 2, BEDSIDE TABLE AND CALL LIGHT IN EASY REACH.WILL ENDORSED TO NEXT SHIFT.
[2022-06-19] MEDS: INSULIN REGULAR, HUMAN 100 UNIT/ML 3 ML VIAL SQ PRN ×3 (06:46→17:24)
[2022-06-19] MEDS: BLOOD SUGAR DIAGNOSTIC 1 EACH STRIP VI SCH ×4 (06:47→22:00)
[2022-06-19 07:00] VITALS: BP 152/75
[2022-06-19 07:02] LABS: BASOPHILS % (AUTO) 0.4 % (0.0-2.0); EOSINOPHILS % (AUTO) 1.3 % (0.0-6.0); HEMATOCRIT 39 % (39-51); HEMOGLOBIN 12.9 g/dL (13.5-17.5); LYMPHOCYTES # (AUTO) 0.6 K/uL (0.8-4.8); LYMPHOCYTES % (AUTO) 12.5 % (20.0-44.0); MEAN CORPUSCULAR HGB CONC 33 g/dl (31.0-36.0); MEAN CORPUSCULAR VOLUME 96 fL (80-96); MONOCYTES # (AUTO) 0.4 K/uL (0.1-1.30); MONOCYTES % (AUTO) 7.9 % (2.0-12.0); NEUTROPHILS # (AUTO) 3.8 K/uL (1.8-8.9); NEUTROPHILS % (AUTO) 77.9 % (43.0-81.0); PLATELET COUNT (AUTO) 148 K/uL (150-450); RED BLOOD CELL COUNT(AUTO) 4.07 MIL/uL (4.5-6.0); WHITE BLOOD COUNT (AUTO) 4.8 K/uL (4.3-11.0)
--- NOTE | 2022-06-19 07:30 | NUR ---
MS RN OPENING NOTES RECEIVED PATIENT ON BED, AWAKE AND A/O X2-3. ON O2 AT 2LPM VIA NASAL CANNULA TOLERATING WELL. NO SOB NOTED. NOT IN DISTRESS. WITH NO COMPLAINTS OF PAIN OR DISCOMFORT AT THIS TIME. ON GLUCERNA 1.2 AT 55ML/HR VIA G-TUBE FEEDING TOLERATING WELL. WITH IV ACCESS AT THE RIGHT AC G20 WITH IVF NS AT 75ML/HR INFUSING WELL. SAFETY MEASURES IN PLACED. CALL LIGHT WITHIN REACH/ BED ON LOWEST LOCKED POSITION, SIDE RAILS UP X2. WILL CONTINUE TO MONITOR.
[2022-06-19 07:36] LABS: ALBUMIN 2.6 g/dL (3.4-5.0); BILIRUBIN,TOTAL 0.3 mg/dL (0.2-1.0); CREATININE 0.9 mg/dL (0.6-1.3); MAGNESIUM 2.3 mg/dL (1.8-2.4); POTASSIUM 3.6 mmol/L (3.5-5.1); TOTAL PROTEIN, SERUM 5.9 g/dL (6.4-8.2)
[2022-06-19] MEDS ORDERED: CEFTRIAXONE 1 G in IV D5W 50 ML IV SCH (09:00)
[2022-06-19] MEDS: CEFTRIAXONE 1 G in IV D5W 50 ML IV SCH (09:00)
[2022-06-19 11:07] LABS: *ANA ANTI-CENTROMERE B AB <0.2 AI (0.0-0.9); *ANA ANTI-DNA(DS) AB, QN <1 IU/mL (0-9); *ANA ANTI-JO-1 <0.2 AI (0.0-0.9); *ANA ANTICHROMATIN ANTIBODY <0.2 AI (0.0-0.9); *ANA RNP ANTIBODIES <0.2 AI (0.0-0.9); *ANA SJOGREN'S ANTI-SS-A <0.2 AI (0.0-0.9); *ANA SJOGREN'S ANTI-SS-B <0.2 AI (0.0-0.9); *ANAANTI-SCLERODERMA-70 AB <0.2 AI (0.0-0.9); *ANASMITH AB <0.2 AI (0.0-0.9)
[2022-06-19] MEDS: GLUCERNA 1.2 1,000 ML BOTTLE NG PRN (12:59)
[2022-06-19 16:00] VITALS: BP 142/64
[2022-06-19] MEDS: IV NS 0.9% 1,000 ML IV PRN (17:41)
--- NOTE | 2022-06-19 18:24 | NUR ---
MS RN CLOSING NOTES PATIENT ON BED, AWAKE AND A/O X2-3. ON O2 AT 2LPM VIA NASAL CANNULA TOLERATING WELL. NO SOB NOTED. NOT IN DISTRESS. WITH NO COMPLAINTS OF PAIN OR DISCOMFORT AT THIS TIME. ON GLUCERNA 1.2 AT 55ML/HR VIA G-TUBE FEEDING TOLERATING WELL. WITH IV ACCESS AT THE RIGHT AC G20 WITH IVF NS AT 75ML/HR INFUSING WELL. DUE MEDS GIVEN. SAFETY MEASURES IN PLACED. CALL LIGHT WITHIN REACH/ BED ON LOWEST LOCKED POSITION, SIDE RAILS UP X2. WILL ENDORSE TO NEXT SHIFT FOR ELMIRA.
--- NOTE | 2022-06-19 19:40 | NUR ---
MS RN OPENING NOTES RECEIVED PATIENT ON BED, AWAKE AND ALERT. A/O X2-3. ON RA, NO SIGNS OF RESPIRATORY DISTRESS AT THIS TIME. NO COMPLAINTS OF PAIN OR DISCOMFORT AT THIS TIME. ON GLUCERNA 1.2 AT 55ML/HR VIA G-TUBE FEEDING TOLERATING WELL. WITH IV ACCESS AT THE RIGHT AC G20 WITH IVF NS AT 75ML/HR INFUSING WELL. SAFETY MEASURES GIVEN WITH BED ON THE LOWEST AND LOCKED POSITION. CALL LIGHT WITHIN REACH. SIDE RAILS UP X2. WILL CONTINUE THE PLAN OF CARE.
[2022-06-19] MEDS: *INSULIN REGULAR(HUMULIN R)HUM 100 UNIT/ML VIAL SQ PRN (23:57)
[2022-06-20] MEDS: ENOXAPARIN SODIUM 40 MG/0.4 ML DISP.SYRIN SQ SCH (06:07)
--- NOTE | 2022-06-20 07:59 | NUR ---
MS RN CLOSING NOTES PATIENT ON BED, AWAKE AND ALERT. A/O X 2-3. ON RA, NO SIGNS OF RESPIRATORY DISTRESS AT THIS TIME. NO COMPLAINTS OF PAIN OR DISCOMFORT AT THIS TIME. ON GLUCERNA 1.2 AT 55ML/HR VIA G-TUBE FEEDING TOLERATING WELL. WITH IV ACCESS AT THE RIGHT AC #20G. SAFETY MEASURES GIVEN WITH BED ON THE LOWEST AND LOCKED POSITION. CALL LIGHT WITHIN REACH. SIDE RAILS UP X2. WILL ENDORSE TO THE NEXT SHIFT.
[2022-06-20] MEDS: INSULIN REGULAR, HUMAN 100 UNIT/ML 3 ML VIAL SQ PRN (08:13)
[2022-06-20] MEDS: BLOOD SUGAR DIAGNOSTIC 1 EACH STRIP VI SCH (08:31)
--- NOTE | 2022-06-20 09:30 | NUR ---
ENDOCRINOLOGY SPECIALIST NOTES PATIENT WAS ORDERED BY RAVINDER ZIMMER NP FOR DISCHARGE TO SNF. PATIENT IS GOING BACK TO [facility]. GIVEN REPORT TO LEFTY OLIVER FROM [facility]. PATIENT HAS SKIN TEAR ON LEFT HAND BUT REFUSED TO TAKE PHOTO. REMOVED IV LINE AND NAME WRIST BAND. PATIENT UNABLE TO SIGN DISCHARGE FORM. CHECKED WITH LIZBETH WALL AND CO-SIGNED DISCHARGE FORM AND BELONGINGS LIST FORM. NO BELONGINGS ON BELONGINGS LIST. AMBULANCE PERSONNEL PICKED UP PATIENT IN STABLE CONDITION VIA GURNEY. MD AND CHARGE NURSE ARE AWARE OF THE DISCHARGE.
== END 2022-06-20 09:30 | DRG 435 ==
LOC: ER 21:37 → MED 06-13 09:53
PROVIDERS: ADMIT Internal Medicine; ATTEND Nurse Practitioner Family
PROC: 0FB03ZX Excision of Liver, Percutaneous Approach, Diagnostic (ICD-10-PCS; principal; 2022-06-19)
DX: C22.7 Other specified carcinomas of liver (principal); G93.41 Metabolic encephalopathy; N17.0 Acute kidney failure with tubular necrosis; D61.818 Other pancytopenia; D69.6 Thrombocytopenia, unspecified; Z20.822 Contact with and (suspected) exposure to COVID-19; E11.9 Type 2 diabetes mellitus without complications; E78.5 Hyperlipidemia, unspecified; F02.80 Dementia in other diseases classified elsewhere, unspecified severity, without behavioral disturbance, psychotic disturbance, mood disturbance, and anxiety; G30.9 Alzheimer's disease, unspecified; G40.909 Epilepsy, unspecified, not intractable, without status epilepticus; I10 Essential (primary) hypertension; K59.00 Constipation, unspecified; Z83.42 Family history of familial hypercholesterolemia; Z79.4 Long term (current) use of insulin; Z79.899 Other long term (current) drug therapy; I25.10 Atherosclerotic heart disease of native coronary artery without angina pectoris; E88.09 Other disorders of plasma-protein metabolism, not elsewhere classified; N28.1 Cyst of kidney, acquired; Z93.1 Gastrostomy status; Z90.5 Acquired absence of kidney; N40.0 Benign prostatic hyperplasia without lower urinary tract symptoms; D64.9 Anemia, unspecified
CPT/HCPCS: 36415; 71045-TC; 74183; 76705-TC; 77012-TC; 80048-TC; 80053-TC; 80076-TC; 81001; 82105; 82378; 82607-TC; 82728-TC; 82784; 82962-TC; 83540-TC; 83605-TC; 83615-TC; 83690-TC; 83735-TC; 84100-TC; 84153-TC; 84154-TC; 84155; 84165; 84439-TC; 84443-TC; 84484-TC; 85025-TC; 85610-TC; 85730-TC; 86225; 86235; 86301; 86334; 86431-TC; 86706; 86803; 87081-TC; 87086-TC; 87340; 88307-TC; 88313-TC; 88333-TC; 88341; 88342; A6403; C9803; G0378; J0696; J1650; J1815; J2250; J2405; J3010; J3490; J7030; J7040; J7050; J7060; Q9967

== ENCOUNTER 2022-09-29 20:12 | Emergency (ER) | payer MEDICARE, OTHER ==
[~2022-09-29] VITALS: Ht 160 cm; Wt 72.6 kg
[~2022-09-29 20:12] MED LIST changes: +ACET325T53 GT; +ATOR10TA GT; +BISA10SU11 RC; +CHOL200013 GT; -CLON0.1T PO; +DIVA500T2 GT; +FAMO20TA8 GT; -HYDR-4384 PO; -INSU100I34 SQ; +INSU100V42; +LEVA0.6320 IH; +MAGN400O6 GT; -MULT-659 PO; +NA P133E RC; +NUT.250L18; -OXCA600T5 PO; +POLY17PO4 GT; -PRAM0.253 PO
--- NOTE | 2022-09-29 20:39 | NUR ---
BIBPA FROM SNF FOR VOMITING X 5 TIMES TODAY, ALERT ORIENTED 3, ON ROOM AIR SATING AT 94%. AFEBRILE. NO S/S OF DISTRESS NOTED. STILL C/O NAUSEA.
--- NOTE | 2022-09-29 20:40 | NUR ---
PATIENT A/O X 1, ANSWER SIMPLE QUESTION.
[2022-09-29] MEDS ORDERED: ONDANSETRON HCL/PF 4 MG/2 ML VIAL IVP ONE (21:00)
[2022-09-29 21:22] LABS: BASOPHILS % (AUTO) 0.3 % (0.0-2.0); EOSINOPHILS % (AUTO) 0.1 % (0.0-6.0); HEMATOCRIT 47 % (39-51); HEMOGLOBIN 15.7 g/dL (13.5-17.5); LYMPHOCYTES # (AUTO) 1.1 K/uL (0.8-4.8); MEAN CORPUSCULAR HGB CONC 33 g/dl (31.0-36.0); MEAN CORPUSCULAR VOLUME 93 fL (80-96); MONOCYTES # (AUTO) 0.7 K/uL (0.1-1.30); MONOCYTES % (AUTO) 8.4 % (2.0-12.0); NEUTROPHILS # (AUTO) 6.8 K/uL (1.8-8.9); NEUTROPHILS % (AUTO) 78.2 % (43.0-81.0); PLATELET COUNT (AUTO) 162 K/uL (150-450); RED BLOOD CELL COUNT(AUTO) 5.03 MIL/uL (4.5-6.0); WHITE BLOOD COUNT (AUTO) 8.7 K/uL (4.3-11.0)
--- NOTE | 2022-09-29 21:40 | NUR ---
STARTED IV LINE AT RAC # 20
[2022-09-29] MEDS ORDERED: ONDANSETRON HCL/PF 4 MG/2 ML VIAL ONE (21:45)
[2022-09-29 21:57] LABS: ALBUMIN 3.4 g/dL (3.4-5.0); ALKALINE PHOSPHATASE 82 U/L (46-116); ASPARTATE AMINOTRANSFERASE 21 U/L (15-37); BILIRUBIN,DIRECT 0.2 mg/dL (0.0-0.2); BILIRUBIN,TOTAL 0.8 mg/dL (0.2-1.0); CALCIUM, SERUM 9.3 mg/dL (8.5-10.1); CARBON DIOXIDE 29 mmol/L (21-32); CHLORIDE 94 mmol/L (98-107); GLUCOSE 164 mg/dL (74-106); LIPASE 128 U/L (73-393); POTASSIUM 3.9 mmol/L (3.5-5.1); SODIUM SERUM 130 mmol/L (136-145); TOTAL PROTEIN, SERUM 7.4 g/dL (6.4-8.2); UREA NITROGEN, BLOOD 25 mg/dL (7-18)
[2022-09-29 22:12] LABS: ALANINE AMINOTRANSFERASE 23 U/L (12-78)
--- NOTE | 2022-09-29 22:54 | NUR ---
URINE SPECIMEN SENT TO LAB
[2022-09-29 23:19] LABS: BILIRUBIN,URINE NEGATIVE (NEGATIVE); COLOR,URINE YELLOW (YELLOW); LEUKOCYTE ESTERASE ,URINE 1+ (NEGATIVE); NITRITE, URINE NEGATIVE (NEGATIVE); PH,URINE 7.5 (5.0-8.0); PROTEIN,URINE NEGATIVE (NEGATIVE); UGLUCOSE NEGATIVE (NEGATIVE); UROBILINOGEN,URINE 0.2 EU/dL (0.2)
[2022-09-29 23:29] LABS: BACTERIA,URINE None seen /HPF (None Seen); RBC,URINE 0-2 /HPF (0-2)
[2022-09-29 23:30] LABS: SQUAMOUS EPITHELIAL CELL,UR None Seen /HPF (None Seen)
[2022-09-30] MEDS ORDERED: CEPH500C2 PO (00:13)
--- NOTE | 2022-09-30 00:18 | NUR ---
apa eta: 90 -120min
[2022-09-30] MEDS ORDERED: CEPHALEXIN MONOHYDRATE 500 MG CAPSULE PO ONE ×2 (00:30→01:43)
--- NOTE | 2022-09-30 01:45 | NUR ---
KEFLEX 500MG GIVEN
--- NOTE | 2022-09-30 02:28 | NUR ---
APA AT BED SIDE
--- NOTE | 2022-09-30 02:38 | NUR ---
PATIENT LEFT FACILITY WITH 2 EMT'S IN STABLE CONDITION.
[2022-09-30 03:35] VITALS: BP 120/70
== END 2022-09-30 02:38 ==
LOC: ER 20:14
DX: N39.0 Urinary tract infection, site not specified (principal); R11.10 Vomiting, unspecified; F02.80 Dementia in other diseases classified elsewhere, unspecified severity, without behavioral disturbance, psychotic disturbance, mood disturbance, and anxiety; G30.9 Alzheimer's disease, unspecified; Z86.16 Personal history of COVID-19; I10 Essential (primary) hypertension; E11.9 Type 2 diabetes mellitus without complications; Z98.890 Other specified postprocedural states; F20.9 Schizophrenia, unspecified; D64.9 Anemia, unspecified; K70.30 Alcoholic cirrhosis of liver without ascites; Z79.899 Other long term (current) drug therapy; Z79.4 Long term (current) use of insulin
CPT/HCPCS: 99285; 96374; 93005; 85025; 80048; 87086; 83690; 80076; 81001; 36415; 84484 ×2; J2405

== ENCOUNTER 2023-09-13 12:00 | Inpatient (IN) | payer MEDICARE, OTHER ==
[~2023-09-13] VITALS: Ht 160 cm; Wt 72.6 kg
[~2023-09-13 12:00] MED LIST changes: +CEFT1VIA14 IV; +CEPH500C2 PO
[2023-09-13] MEDS: CEFEPIME 1 GM in IV D5W 50 ML IV ONE (12:34)
[2023-09-13] MEDS: IV NS 0.9% 1,000 ML BAG IV ONE (12:34)
[2023-09-13] MEDS: VANCOMYCIN 1 GM in IV D5W 250 ML IV ONE (13:00)
[2023-09-13] MEDS ORDERED: MELA5TAB GT (13:23)
[2023-09-13] MEDS ORDERED: ASCO-340 GT (13:23)
[2023-09-13] MEDS ORDERED: LEVE500S9 GT (13:23)
[2023-09-13] MEDS ORDERED: MIDO5TAB4 GT (13:23)
[2023-09-13] MEDS ORDERED: INSU100V39 SQ (13:23)
[2023-09-13] MEDS ORDERED: ACET325T53 GT (13:23)
[2023-09-13] MEDS ORDERED: INSU100I30 SQ (13:23)
[2023-09-13] MEDS ORDERED: MULT-594 GT (13:23)
[2023-09-13] MEDS ORDERED: DOCU50LI GT (13:23)
[2023-09-13] MEDS ORDERED: PANT40SU2 GT (13:23)
[2023-09-13] MEDS ORDERED: ZINC220C6 GT (13:23)
[2023-09-13] MEDS ORDERED: ONDA-97 GT (13:23)
[2023-09-13] MEDS ORDERED: GLUC1KIT IM (13:23)
[2023-09-13] MEDS ORDERED: NUT.237L30 GT (13:23)
[2023-09-13] MEDS ORDERED: DIVA125C5 GT ×2 (13:23)
[2023-09-13] MEDS ORDERED: ACET-637 GT (13:23)
[2023-09-13] MEDS ORDERED: SENN-261 GT (13:23)
[2023-09-13] MEDS ORDERED: ACETAMINOPHEN 650 MG/SUPP.RECT RC ONE (13:33)
[2023-09-13 13:34] LABS: BASOPHILS % (AUTO) 0.5 % (0.0-2.0); EOSINOPHILS % (AUTO) 0.1 % (0.0-6.0); HEMATOCRIT 56 % (39-51); HEMOGLOBIN 18.2 g/dL (13.5-17.5); LYMPHOCYTES # (AUTO) 0.7 K/uL (0.8-4.8); LYMPHOCYTES % (AUTO) 8.9 % (20.0-44.0); MEAN CORPUSCULAR HEMOGLOBIN 34 PG (26.0-33.0); MEAN CORPUSCULAR HGB CONC 33 g/dl (31.0-36.0); MEAN CORPUSCULAR VOLUME 102 fL (80-96); MONOCYTES # (AUTO) 0.8 K/uL (0.1-1.30); MONOCYTES % (AUTO) 9.2 % (2.0-12.0); NEUTROPHILS # (AUTO) 6.8 K/uL (1.8-8.9); NEUTROPHILS % (AUTO) 81.3 % (43.0-81.0); PLATELET COUNT (AUTO) 96 K/uL (150-450); RED BLOOD CELL COUNT(AUTO) 5.43 MIL/uL (4.5-6.0); RED CELL DISTRIBUTION WIDTH 14.2 % (11.5-15.0); WHITE BLOOD COUNT (AUTO) 8.3 K/uL (4.3-11.0)
[2023-09-13] MEDS: ACETAMINOPHEN 650 MG/SUPP.RECT RC ONE (13:51)
[2023-09-13 13:56] LABS: PARTIAL THROMBOPLASTIN TIME 24.2 SEC (24.3-34.3); PROTHROMBIN TIME 10.6 SECS (9.2-11.1)
[2023-09-13 15:00] LABS: ALANINE AMINOTRANSFERASE 23 U/L (12-78); ALBUMIN 2.7 g/dL (3.4-5.0); ALKALINE PHOSPHATASE 146 U/L (46-116); ASPARTATE AMINOTRANSFERASE 34 U/L (15-37); BILIRUBIN,DIRECT 0.1 mg/dL (0.0-0.2); BILIRUBIN,TOTAL 0.5 mg/dL (0.2-1.0); CALCIUM, SERUM 9.2 mg/dL (8.5-10.1); CARBON DIOXIDE 28 mmol/L (21-32); CHLORIDE 119 mmol/L (98-107); CREATININE 1.7 mg/dL (0.6-1.3); POTASSIUM 4.5 mmol/L (3.5-5.1); TOTAL PROTEIN, SERUM 7.7 g/dL (6.4-8.2); UREA NITROGEN, BLOOD 56 mg/dL (7-18)
[2023-09-13 15:03] LABS: LACTIC ACID 2.5 mmol/L (0.4-2.0); LYMPHOCYTES % (MANUAL) 9 % (16-48); MONOCYTES % (MANUAL) 5 % (0-11.0); NEUTROPHILS % (MANUAL) 86 (42-76); PLATELET ESTIMATE DECREASED
[2023-09-13 15:04] LABS: GLUCOSE 500 mg/dL (74-106); SODIUM SERUM 158 mmol/L (136-145)
[2023-09-13 15:05] LABS: ANISOCYTOSIS 1+
[2023-09-13 15:26] LABS: APPEARANCE,URINE CLEAR (CLEAR); BILIRUBIN,URINE NEGATIVE (NEGATIVE); BLOOD, URINE 2+ Ery/uL (NEGATIVE); COLOR,URINE YELLOW (YELLOW); KETONES,URINE NEGATIVE (NEGATIVE); LEUKOCYTE ESTERASE ,URINE NEGATIVE (NEGATIVE); NITRITE, URINE NEGATIVE (NEGATIVE); PH,URINE 6.5 (5.0-8.0); PROTEIN,URINE NEGATIVE (NEGATIVE); UGLUCOSE 3+ mg/dL (NEGATIVE); UROBILINOGEN,URINE 0.2 EU/dL (0.2)
[2023-09-13] MEDS ORDERED: INSULIN REGULAR, HUMAN 100 UNIT/ML 10 ML VIAL ONE (15:34)
[2023-09-13] MEDS ORDERED: ASPIRIN 300 MG/SUPP.RECT RC ONE (15:34)
[2023-09-13] MEDS: ASPIRIN 300 MG/SUPP.RECT RC ONE (15:50)
[2023-09-13] MEDS: INSULIN REGULAR, HUMAN 100 UNIT/ML 10 ML VIAL IV ONE (15:51)
[2023-09-13 16:10] LABS: ADD URINE CULTURE NO; WBC,URINE 0-2 /HPF (0-3)
[2023-09-13 16:11] LABS: BACTERIA,URINE Rare /HPF (None Seen); SQUAMOUS EPITHELIAL CELL,UR Few /HPF (None Seen)
[2023-09-13] MEDS ORDERED: ONDANSETRON HCL/PF 4 MG/2 ML VIAL IVP PRN (16:30)
[2023-09-13] MEDS ORDERED: DEXTROSE 50%-WATER 50 ML DISP.SYRIN IV PRN (16:30)
[2023-09-13 16:50] VITALS: BP 120/76; TEMP 97.9; O2SAT 99
[2023-09-13] MEDS: BLOOD SUGAR DIAGNOSTIC 1 EACH STRIP IN SCH (17:39)
[2023-09-13] MEDS: INSULIN REGULAR, HUMAN 100 UNIT/ML 3 ML VIAL SQ PRN (17:42)
[2023-09-13] MEDS: MEROPENEM 500 MG in IV NS 0.9% 50 ML IV SCH (17:43)
[2023-09-13] MEDS: MIDODRINE HCL (5MG) 5 MG TABLET GT SCH (17:47)
[2023-09-13] MEDS: ENOXAPARIN SODIUM 30 MG/0.3 ML DISP.SYRIN SQ SCH (17:48)
[2023-09-13] MEDS: IV 1/2NS 1000 ML 1,000 ML IV PRN (17:50)
[2023-09-13 18:40] LABS: THYROID STIMULATING HORMONE 1.758 uIU/mL (0.358-3.74)
[2023-09-13 20:00] VITALS: BP 126/77; TEMP 98.2; O2SAT 99
[2023-09-13] MEDS: LEVETIRACETAM SOL (5 ML) 100 MG/ML UDC GT SCH (21:29)
[2023-09-13] MEDS: METOPROLOL TARTRATE 25 MG TABLET GT SCH (21:30)
[2023-09-13] MEDS: ATORVASTATIN 10 MG TABLET GT SCH (21:33)
[2023-09-13] MEDS: INSULIN GLARGINE, 100 UNIT/ML CARTRIDGE SQ SCH (22:50)
[2023-09-14] VITALS: BP 120/72; TEMP 98.2; O2SAT 99
[2023-09-14] MEDS: GLUCERNA 1.2 1,000 ML BOTTLE GT PRN (01:59)
[2023-09-14 04:00] VITALS: BP 121/72; TEMP 98.5; O2SAT 99
[2023-09-14 08:00] VITALS: BP 104/63; TEMP 97.3; O2SAT 99
[2023-09-14 08:01] LABS: ABG BASE EXCESS 0.3 mmol/L; ABG OXYGEN SATURATION 95.7 % (92.0-98.5); ABG PCO2 39.8 mmHg (35.0-45.0); ABG PH 7.413 (7.350-7.450); ABG PO2 81.8 mmHg (75.0-100.0); ABG TOTAL HEMOGLOBIN 16.3 G/dL (13.5-18.0); AaDO2 99.8 mmHg; COHb 0.8 % (0.5-1.5); MetHb 0.2 % (0.0-1.5); O2Hb 94.7 % (94.0-97.0); SITE, ABG Right Brachial; VENT MODE, BG NASAL CANNULA
[2023-09-14] MEDS: ACETAMINOPHEN 325 MG TABLET MC SCH (08:51)
[2023-09-14] MEDS: PANTOPRAZOLE 40 MG/PACK PACK GT SCH (08:51)
[2023-09-14] MEDS: FINASTERIDE (5 MG) 5 MG TABLET GT SCH (08:51)
[2023-09-14 09:16] LABS: CALCIUM, SERUM 7.7 mg/dL (8.5-10.1); CARBON DIOXIDE 21 mmol/L (21-32); CHLORIDE 124 mmol/L (98-107); CREATININE 0.8 mg/dL (0.6-1.3); GLUCOSE 111 mg/dL (74-106); MAGNESIUM 2.9 mg/dL (1.8-2.4); POTASSIUM 4.5 mmol/L (3.5-5.1); SODIUM SERUM 154 mmol/L (136-145); UREA NITROGEN, BLOOD 35 mg/dL (7-18)
[2023-09-14 11:30] LABS: BASOPHILS % (AUTO) 0.7 % (0.0-2.0); EOSINOPHILS # (AUTO) 0.1 K/uL (0.0-0.7); EOSINOPHILS % (AUTO) 1.9 % (0.0-6.0); HEMATOCRIT 46 % (39-51); HEMOGLOBIN 14.5 g/dL (13.5-17.5); LYMPHOCYTES # (AUTO) 0.7 K/uL (0.8-4.8); LYMPHOCYTES % (AUTO) 12.1 % (20.0-44.0); MEAN CORPUSCULAR HEMOGLOBIN 33 PG (26.0-33.0); MEAN CORPUSCULAR HGB CONC 32 g/dl (31.0-36.0); MEAN CORPUSCULAR VOLUME 104 fL (80-96); MONOCYTES # (AUTO) 0.7 K/uL (0.1-1.30); MONOCYTES % (AUTO) 12.3 % (2.0-12.0); NEUTROPHILS # (AUTO) 4.2 K/uL (1.8-8.9); PLATELET COUNT (AUTO) 73 K/uL (150-450); RED BLOOD CELL COUNT(AUTO) 4.44 MIL/uL (4.5-6.0); RED CELL DISTRIBUTION WIDTH 14.5 % (11.5-15.0); WHITE BLOOD COUNT (AUTO) 5.7 K/uL (4.3-11.0)
[2023-09-14] MEDS: VANCOMYCIN 750 MG in IV D5W 250 ML IV SCH (11:57)
[2023-09-14 12:00] VITALS: BP 107/70; TEMP 97.3; O2SAT 97
[2023-09-14] MEDS ORDERED: VANCOMYCIN 1 GM in IV D5W 250ml IV SCH (12:00)
[2023-09-14 14:24] LABS: BAND % (MANUAL) 2 % (0.0-5.0); EOSINOPHILS % (MANUAL) 1 % (0-4); LYMPHOCYTES % (MANUAL) 12 % (16-48); MONOCYTES % (MANUAL) 8 % (0-11.0); NEUTROPHILS % (MANUAL) 75 (42-76)
[2023-09-14 14:25] LABS: ANISOCYTOSIS 1+; METAMYELOCYTES % 1 % (0-0); MYELOCYTES % 1 % (0-0); PLATELET ESTIMATE DECREASED; STOMATOCYTES 1+
[2023-09-14 16:00] VITALS: BP 121/62; TEMP 97.7; O2SAT 96
[2023-09-14 20:00] VITALS: BP 106/53; TEMP 98.6; O2SAT 96
[2023-09-15] VITALS: BP 105/66; TEMP 98.4; O2SAT 99
[2023-09-15 04:00] VITALS: BP 101/65; TEMP 98.1; O2SAT 99
[2023-09-15 08:00] VITALS: BP 95/61; TEMP 97.3; O2SAT 99
[2023-09-15 11:37] LABS: CALCIUM, SERUM 7.1 mg/dL (8.5-10.1); CARBON DIOXIDE 22 mmol/L (21-32); CHLORIDE 119 mmol/L (98-107); CREATININE 0.9 mg/dL (0.6-1.3); GLUCOSE 285 mg/dL (74-106); POTASSIUM 4.1 mmol/L (3.5-5.1); SODIUM SERUM 148 mmol/L (136-145); UREA NITROGEN, BLOOD 32 mg/dL (7-18)
[2023-09-15 12:00] VITALS: BP 113/46; TEMP 97.9; O2SAT 99
[2023-09-15] MEDS: THERAHONEY GEL 1.5 OZ TUBE TP SCH (12:25)
[2023-09-15 16:00] VITALS: BP 130/47; TEMP 98.4; O2SAT 99
[2023-09-15] MEDS: GLUCERNA 1.2 1,000 ML BOTTLE GT PRN (19:31)
[2023-09-15 20:00] VITALS: BP 140/65; TEMP 98.1; O2SAT 99
[2023-09-15] MEDS: IV 1/2NS 1000 ML 1,000 ML IV PRN (20:52)
[2023-09-16] VITALS (8 sets, daily range): BP systolic 96–121; BP diastolic 53–70; TEMP 97.1–98.8; O2SAT 97–100
[2023-09-16 07:31] LABS: BASOPHILS % (AUTO) 0.6 % (0.0-2.0); EOSINOPHILS # (AUTO) 0.1 K/uL (0.0-0.7); EOSINOPHILS % (AUTO) 1.7 % (0.0-6.0); HEMATOCRIT 42 % (39-51); LYMPHOCYTES # (AUTO) 0.6 K/uL (0.8-4.8); LYMPHOCYTES % (AUTO) 13.5 % (20.0-44.0); MEAN CORPUSCULAR HEMOGLOBIN 34 PG (26.0-33.0); MEAN CORPUSCULAR HGB CONC 33 g/dl (31.0-36.0); MEAN CORPUSCULAR VOLUME 102 fL (80-96); MONOCYTES # (AUTO) 0.5 K/uL (0.1-1.30); MONOCYTES % (AUTO) 10.9 % (2.0-12.0); NEUTROPHILS # (AUTO) 3.3 K/uL (1.8-8.9); NEUTROPHILS % (AUTO) 73.3 % (43.0-81.0); PLATELET COUNT (AUTO) 59 K/uL (150-450); RED BLOOD CELL COUNT(AUTO) 4.16 MIL/uL (4.5-6.0); RED CELL DISTRIBUTION WIDTH 13.3 % (11.5-15.0); WHITE BLOOD COUNT (AUTO) 4.5 K/uL (4.3-11.0)
[2023-09-16 08:28] LABS: CALCIUM, SERUM 6.9 mg/dL (8.5-10.1); CREATININE 0.7 mg/dL (0.6-1.3); MAGNESIUM 2.2 mg/dL (1.8-2.4); PHOSPHORUS 1.8 mg/dL (2.5-4.9); POTASSIUM 4.3 mmol/L (3.5-5.1)
[2023-09-16] MEDS: Z GUARD REMEDY 4 OZ OINT TP PRN (09:24)
[2023-09-16] MEDS ORDERED: CEFEPIME 1 GM in IV D5W 50 ML IV SCH (14:00)
[2023-09-16] MEDS: NEUTRA PHOS 1 POWD.PACKET NG ONE (17:13)
[2023-09-16] MEDS: CEFEPIME 2 GM in IV D5W 100 ML IV SCH (17:14)
[2023-09-16 18:27] LABS: EOSINOPHILS % (MANUAL) 3 % (0-4); LYMPHOCYTES % (MANUAL) 13 % (16-48); MONOCYTES % (MANUAL) 5 % (0-11.0); NEUTROPHILS % (MANUAL) 79 (42-76)
[2023-09-16 18:28] LABS: ANISOCYTOSIS 1+
[2023-09-16] MEDS: DIVALPROEX SODIUM 125 MG CAP.SPRINK GT SCH (21:25)
[2023-09-17] VITALS: BP 110/40; TEMP 98.8; O2SAT 100
[2023-09-17 04:00] VITALS: BP 116/53; TEMP 99; O2SAT 100
[2023-09-17 06:49] LABS: BASOPHILS % (AUTO) 0.5 % (0.0-2.0); EOSINOPHILS # (AUTO) 0.1 K/uL (0.0-0.7); EOSINOPHILS % (AUTO) 2.1 % (0.0-6.0); HEMATOCRIT 38 % (39-51); LYMPHOCYTES # (AUTO) 0.7 K/uL (0.8-4.8); LYMPHOCYTES % (AUTO) 15.4 % (20.0-44.0); MEAN CORPUSCULAR HEMOGLOBIN 34 PG (26.0-33.0); MEAN CORPUSCULAR HGB CONC 34 g/dl (31.0-36.0); MEAN CORPUSCULAR VOLUME 100 fL (80-96); MONOCYTES # (AUTO) 0.4 K/uL (0.1-1.30); MONOCYTES % (AUTO) 9.3 % (2.0-12.0); NEUTROPHILS # (AUTO) 3.1 K/uL (1.8-8.9); NEUTROPHILS % (AUTO) 72.7 % (43.0-81.0); PLATELET COUNT (AUTO) 62 K/uL (150-450); RED BLOOD CELL COUNT(AUTO) 3.84 MIL/uL (4.5-6.0); WHITE BLOOD COUNT (AUTO) 4.2 K/uL (4.3-11.0)
[2023-09-17 07:16] LABS: VALPROIC ACID < 0 ug/mL (50-100)
[2023-09-17 07:25] LABS: ALANINE AMINOTRANSFERASE 24 U/L (12-78); ALBUMIN 1.7 g/dL (3.4-5.0); ALKALINE PHOSPHATASE 117 U/L (46-116); ASPARTATE AMINOTRANSFERASE 44 U/L (15-37); BILIRUBIN,TOTAL 0.5 mg/dL (0.2-1.0); CALCIUM, SERUM 7.2 mg/dL (8.5-10.1); CARBON DIOXIDE 23 mmol/L (21-32); CHLORIDE 112 mmol/L (98-107); CREATININE 0.7 mg/dL (0.6-1.3); GLUCOSE 155 mg/dL (74-106); MAGNESIUM 2.1 mg/dL (1.8-2.4); POTASSIUM 4.3 mmol/L (3.5-5.1); SODIUM SERUM 140 mmol/L (136-145); TOTAL PROTEIN, SERUM 5.3 g/dL (6.4-8.2); UREA NITROGEN, BLOOD 17 mg/dL (7-18)
[2023-09-17 08:00] VITALS: BP_SYST 111; BP_SYST 125; BP_DIAS 62; BP_DIAS 65; TEMP 97.9; TEMP 98.6; O2SAT 99
[2023-09-17] MEDS: DIVALPROEX SODIUM 125 MG CAP.SPRINK GT SCH (09:18)
[2023-09-17 12:00] VITALS: BP 129/88; TEMP 98.4; O2SAT 98
[2023-09-17 15:54] LABS: BAND % (MANUAL) 7 % (0.0-5.0); EOSINOPHILS % (MANUAL) 1 % (0-4); LYMPHOCYTES % (MANUAL) 11 % (16-48); MONOCYTES % (MANUAL) 9 % (0-11.0); NEUTROPHILS % (MANUAL) 72 (42-76); PLATELET ESTIMATE DECREASED
[2023-09-17 16:00] VITALS: BP 94/44; TEMP 97.5; O2SAT 99
[2023-09-17] MEDS: NEUTRA PHOS 1 POWD.PACKET GT ONE (17:32)
[2023-09-17 20:00] VITALS: BP 92/55; TEMP 98; O2SAT 99
[2023-09-18] VITALS (7 sets, daily range): BP systolic 98–114; BP diastolic 55–68; TEMP 98.1–99; O2SAT 96–99
[2023-09-18] MEDS: ACETAMINOPHEN 325 MG TABLET PO PRN (01:54)
[2023-09-18 07:29] LABS: BASOPHILS % (AUTO) 0.7 % (0.0-2.0); EOSINOPHILS # (AUTO) 0.1 K/uL (0.0-0.7); EOSINOPHILS % (AUTO) 2.5 % (0.0-6.0); HEMATOCRIT 39 % (39-51); HEMOGLOBIN 13.1 g/dL (13.5-17.5); LYMPHOCYTES # (AUTO) 0.5 K/uL (0.8-4.8); LYMPHOCYTES % (AUTO) 15.7 % (20.0-44.0); MEAN CORPUSCULAR HEMOGLOBIN 33 PG (26.0-33.0); MEAN CORPUSCULAR HGB CONC 34 g/dl (31.0-36.0); MEAN CORPUSCULAR VOLUME 99 fL (80-96); MONOCYTES # (AUTO) 0.4 K/uL (0.1-1.30); MONOCYTES % (AUTO) 11.1 % (2.0-12.0); NEUTROPHILS # (AUTO) 2.4 K/uL (1.8-8.9); PLATELET COUNT (AUTO) 83 K/uL (150-450); RED BLOOD CELL COUNT(AUTO) 3.92 MIL/uL (4.5-6.0); RED CELL DISTRIBUTION WIDTH 13.3 % (11.5-15.0); WHITE BLOOD COUNT (AUTO) 3.5 K/uL (4.3-11.0)
[2023-09-18 07:59] LABS: CALCIUM, SERUM 7.6 mg/dL (8.5-10.1); CARBON DIOXIDE 22 mmol/L (21-32); CHLORIDE 111 mmol/L (98-107); CREATININE 0.9 mg/dL (0.6-1.3); GLUCOSE 184 mg/dL (74-106); MAGNESIUM 2.2 mg/dL (1.8-2.4); PHOSPHORUS 2.9 mg/dL (2.5-4.9); POTASSIUM 4.7 mmol/L (3.5-5.1); SODIUM SERUM 140 mmol/L (136-145); UREA NITROGEN, BLOOD 16 mg/dL (7-18)
[2023-09-18 11:59] LABS: BASOPHILS % (MANUAL) 1 % (0.0-2.0); EOSINOPHILS % (MANUAL) 4 % (0-4); LYMPHOCYTES % (MANUAL) 15 % (16-48); MONOCYTES % (MANUAL) 10 % (0-11.0); NEUTROPHILS % (MANUAL) 70 (42-76); PLATELET ESTIMATE DECREASED
[2023-09-18] MEDS ORDERED: DONE5TAB34 PO (13:12)
[2023-09-18] MEDS ORDERED: DONEPEZIL 5 MG TABLET PO SCH (22:00)
== END 2023-09-18 15:40 | DRG 871 ==
LOC: ER 12:09 → TELE-TD 15:40 → TELE1 09-16 10:46 → MEDSG1 09-18 10:49
PROVIDERS: ADMIT Nurse Practitioner Acute Care; ATTEND Nurse Practitioner Family
DX: A41.9 Sepsis, unspecified organism (principal); G93.41 Metabolic encephalopathy; I21.A1 Myocardial infarction type 2; N17.9 Acute kidney failure, unspecified; F02.83 Dementia in other diseases classified elsewhere, unspecified severity, with mood disturbance; F02.84 Dementia in other diseases classified elsewhere, unspecified severity, with anxiety; E87.20 Acidosis, unspecified; E87.0 Hyperosmolality and hypernatremia; N39.0 Urinary tract infection, site not specified; E86.0 Dehydration; Z20.822 Contact with and (suspected) exposure to COVID-19; I10 Essential (primary) hypertension; E78.5 Hyperlipidemia, unspecified; Z85.05 Personal history of malignant neoplasm of liver; K74.60 Unspecified cirrhosis of liver; Z93.1 Gastrostomy status; G30.9 Alzheimer's disease, unspecified; F41.9 Anxiety disorder, unspecified; I25.10 Atherosclerotic heart disease of native coronary artery without angina pectoris; K21.00 Gastro-esophageal reflux disease with esophagitis, without bleeding; G40.909 Epilepsy, unspecified, not intractable, without status epilepticus; Z86.16 Personal history of COVID-19; Z78.1 Physical restraint status; N40.0 Benign prostatic hyperplasia without lower urinary tract symptoms; M89.8X9 Other specified disorders of bone, unspecified site; Z90.5 Acquired absence of kidney; F20.9 Schizophrenia, unspecified; Z83.438 Family history of other disorder of lipoprotein metabolism and other lipidemia; Z79.4 Long term (current) use of insulin; Z79.899 Other long term (current) drug therapy; Z79.51 Long term (current) use of inhaled steroids; E86.1 Hypovolemia; E11.65 Type 2 diabetes mellitus with hyperglycemia; E88.09 Other disorders of plasma-protein metabolism, not elsewhere classified; D69.6 Thrombocytopenia, unspecified; F32.A Depression, unspecified; J44.9 Chronic obstructive pulmonary disease, unspecified; D75.1 Secondary polycythemia; E86.9 Volume depletion, unspecified; L89.156 Pressure-induced deep tissue damage of sacral region; S40.822A Blister (nonthermal) of left upper arm, initial encounter; X58.XXXA Exposure to other specified factors, initial encounter; Y92.9 Unspecified place or not applicable
CPT/HCPCS: 36415; 36600; 71045-TC; 74018; 80048-TC; 80053-TC; 80061-TC; 80076-TC; 80164-TC; 80202-TC; 81001; 82140-TC; 82803-TC; 82962-TC; 83605-TC; 83735-TC; 84100-TC; 84443-TC; 84484-TC; 85025-TC; 85730-TC; 87040-TC; 87081-TC; 87086-TC; 93307-TC; 93971-TC; 94760-TC; 94762-TC; 94799-TC; A4223; G0378; J0692; J1650; J1815; J1953; J2185; J3370; J3371; J3490; J7060

== ENCOUNTER 2023-12-27 20:31 | Inpatient (IN) | payer MEDICARE, OTHER ==
[~2023-12-27] VITALS: Ht 152.4 cm; Wt 64.9 kg
[~2023-12-27 20:31] MED LIST changes: +ACET-637 GT; +ASCO-340 GT; -CEFT1VIA14 IV; -CEPH500C2 PO; -CHOL200013 GT; +DIVA125C5 GT; -DIVA500T2 GT; +DOCU50LI GT; +DONE5TAB34 PO; -FAMO20TA8 GT; +GLUC1KIT IM; +INSU100I30 SQ; +INSU100V39 SQ; -INSU100V42; +LEVE500S9 GT; -LEVE500T9 GT; -MAG30ORA GT; -MAGN400O6 GT; +MELA5TAB GT; +MIDO5TAB4 GT; +MULT-594 GT; -NA P133E RC; +NUT.237L30 GT; -NUT.250L18; +ONDA-97 GT; +PANT40SU2 GT; -PSYL3.4P6 GT; +SENN-261 GT; +ZINC220C6 GT
[2023-12-27] MEDS ORDERED: ACETAMINOPHEN 650 MG/SUPP.RECT RC ONE (21:15)
[2023-12-27] MEDS: IV NS 0.9% 1,000 ML BAG IV ONE (21:19)
[2023-12-27 21:24] LABS: BASOPHILS % (AUTO) 0.1 % (0.0-2.0); HEMATOCRIT 49 % (39-51); HEMOGLOBIN 15.5 g/dL (13.5-17.5); LYMPHOCYTES # (AUTO) 0.5 K/uL (0.8-4.8); LYMPHOCYTES % (AUTO) 4.2 % (20.0-44.0); MEAN CORPUSCULAR HEMOGLOBIN 33 PG (26.0-33.0); MEAN CORPUSCULAR HGB CONC 31 g/dl (31.0-36.0); MEAN CORPUSCULAR VOLUME 105 fL (80-96); MONOCYTES # (AUTO) 0.4 K/uL (0.1-1.30); MONOCYTES % (AUTO) 3.5 % (2.0-12.0); NEUTROPHILS # (AUTO) 10.8 K/uL (1.8-8.9); NEUTROPHILS % (AUTO) 92.2 % (43.0-81.0); PLATELET COUNT (AUTO) 96 K/uL (150-450); RED BLOOD CELL COUNT(AUTO) 4.72 MIL/uL (4.5-6.0); RED CELL DISTRIBUTION WIDTH 15.2 % (11.5-15.0); WHITE BLOOD COUNT (AUTO) 11.7 K/uL (4.3-11.0)
[2023-12-27] MEDS: ACETAMINOPHEN 650 MG/SUPP.RECT RC ONE (21:32)
[2023-12-27 21:38] LABS: INR 1.02 (0.91-1.10); PARTIAL THROMBOPLASTIN TIME 28.8 SEC (24.3-34.3); PROTHROMBIN TIME 10.8 SECS (9.2-11.1)
[2023-12-27 21:39] LABS: CALCIUM, SERUM 9.4 mg/dL (8.5-10.1); CARBON DIOXIDE 28 mmol/L (21-32); CREATININE 1.6 mg/dL (0.6-1.3); GLUCOSE 283 mg/dL (74-106); POTASSIUM 4.2 mmol/L (3.5-5.1); UREA NITROGEN, BLOOD 48 mg/dL (7-18)
[2023-12-27 21:42] LABS: CHLORIDE 128 mmol/L (98-107); SODIUM SERUM 168 mmol/L (136-145)
[2023-12-27 21:47] LABS: ALANINE AMINOTRANSFERASE 16 U/L (12-78); ALBUMIN 1.8 g/dL (3.4-5.0); ALKALINE PHOSPHATASE 152 U/L (46-116); ASPARTATE AMINOTRANSFERASE 31 U/L (15-37); BILIRUBIN,DIRECT 0.1 mg/dL (0.0-0.2); BILIRUBIN,TOTAL 0.5 mg/dL (0.2-1.0); TOTAL PROTEIN, SERUM 8.3 g/dL (6.4-8.2)
[2023-12-27 21:51] LABS: LACTIC ACID 3.9 mmol/L (0.4-2.0)
[2023-12-27 22:29] LABS: APPEARANCE,URINE CLEAR (CLEAR); BILIRUBIN,URINE NEGATIVE (NEGATIVE); BLOOD, URINE 1+ Ery/uL (NEGATIVE); COLOR,URINE YELLOW (YELLOW); KETONES,URINE TRACE mg/dL (NEGATIVE); LEUKOCYTE ESTERASE ,URINE TRACE (NEGATIVE); NITRITE, URINE NEGATIVE (NEGATIVE); PROTEIN,URINE 1+ mg/dl (NEGATIVE); UGLUCOSE NEGATIVE (NEGATIVE)
[2023-12-27 23:31] LABS: ADD URINE CULTURE NO; BACTERIA,URINE Rare /HPF (None Seen); MUCUS,URINE Moderate /LPF (None Seen)
[2023-12-27] MEDS ORDERED: CEFTRIAXONE 1GM BAG (ER ONLY) 50 ML IV ONE (23:41)
[2023-12-27] MEDS ORDERED: ROCURONIUM BROMIDE 50 MG/5 ML ONE (23:41)
[2023-12-27] MEDS ORDERED: FAMOTIDINE/PF INJ 20 MG/2 ML VIAL IV ONE (23:42)
[2023-12-27] MEDS: CEFTRIAXONE 1GM BAG (ER ONLY) 1 GM/50 ML PIGGYBACK IV ONE (23:58)
[2023-12-28] MEDS ORDERED: MORPHINE SULFATE INJ 2 MG/ML DISP.SYRIN IV PRN (00:30)
[2023-12-28] MEDS ORDERED: ASPIRIN 300 MG/SUPP.RECT RC SCH (00:30)
[2023-12-28] MEDS ORDERED: ONDANSETRON HCL/PF 4 MG/2 ML VIAL IVP PRN (00:30)
[2023-12-28] MEDS ORDERED: hydrALAZINE HCL IV 20 MG VIAL IV PRN (00:30)
[2023-12-28] MEDS ORDERED: DEXTROSE 50%-WATER 50 ML DISP.SYRIN IV PRN (00:30)
[2023-12-28] MEDS ORDERED: ACETAMINOPHEN 325 MG TABLET PO PRN (00:30)
[2023-12-28] MEDS ORDERED: GLUCERNA 1.2 1,000 ML BOTTLE NG PRN (01:00)
[2023-12-28 01:22] LABS: ALANINE AMINOTRANSFERASE 13 U/L (12-78); ALBUMIN 1.5 g/dL (3.4-5.0); ALKALINE PHOSPHATASE 132 U/L (46-116); ASPARTATE AMINOTRANSFERASE 33 U/L (15-37); BILIRUBIN,TOTAL 0.5 mg/dL (0.2-1.0); CALCIUM, SERUM 8.9 mg/dL (8.5-10.1); CARBON DIOXIDE 29 mmol/L (21-32); CREATININE 1.4 mg/dL (0.6-1.3); GLUCOSE 246 mg/dL (74-106); POTASSIUM 4.1 mmol/L (3.5-5.1); TOTAL PROTEIN, SERUM 7.2 g/dL (6.4-8.2); UREA NITROGEN, BLOOD 49 mg/dL (7-18)
[2023-12-28 01:37] LABS: SODIUM SERUM 168 mmol/L (136-145)
[2023-12-28 01:38] LABS: CHLORIDE 132 mmol/L (98-107)
[2023-12-28] MEDS: MIDODRINE HCL (5MG) 5 MG TABLET GT SCH (01:58)
[2023-12-28 01:59] LABS: BAND % (MANUAL) 6 % (0.0-5.0); LYMPHOCYTES % (MANUAL) 6 % (16-48); MONOCYTES % (MANUAL) 4 % (0-11.0); NEUTROPHILS % (MANUAL) 84 (42-76); PLATELET ESTIMATE DECREASED
[2023-12-28] MEDS: IV D5/0.45 NACL 1,000 ML IV SCH (02:01)
[2023-12-28] MEDS: BLOOD SUGAR DIAGNOSTIC 1 EACH STRIP VI SCH (02:16)
[2023-12-28] MEDS: *INSULIN REGULAR(HUMULIN R)HUM 100 UNIT/ML VIAL SQ PRN ×2 (02:18→22:13)
[2023-12-28] MEDS ORDERED: CEFEPIME 1 GM VIAL ONE (02:48)
[2023-12-28] MEDS ORDERED: ALBUMIN 25% 100 ML IV ONE (02:49)
[2023-12-28] MEDS: ALBUMIN 25% 25 GM in PREMIX 1 EA IV SCH (03:18)
[2023-12-28] MEDS: CEFEPIME 1 GM in IV D5W 50 ML IV ONE (03:19)
[2023-12-28 04:00] VITALS: BP 111/62; TEMP 98.1; O2SAT 95
[2023-12-28] MEDS: GLUCERNA 1.2 1,000 ML BOTTLE NG PRN (06:07)
[2023-12-28] MEDS ORDERED: ACETAMINOPHEN 650 MG/20.3 ML UDC GT PRN (07:00)
[2023-12-28 07:01] LABS: ALANINE AMINOTRANSFERASE 8 U/L (12-78); ALBUMIN 2.5 g/dL (3.4-5.0); ALKALINE PHOSPHATASE 117 U/L (46-116); ASPARTATE AMINOTRANSFERASE 24 U/L (15-37); CALCIUM, SERUM 8.6 mg/dL (8.5-10.1); CARBON DIOXIDE 26 mmol/L (21-32); CREATININE 1.4 mg/dL (0.6-1.3); POTASSIUM 4.5 mmol/L (3.5-5.1); TOTAL PROTEIN, SERUM 7.3 g/dL (6.4-8.2); UREA NITROGEN, BLOOD 49 mg/dL (7-18)
[2023-12-28 07:05] LABS: CHLORIDE 127 mmol/L (98-107); GLUCOSE 399 mg/dL (74-106); SODIUM SERUM 164 mmol/L (136-145)
[2023-12-28 08:00] VITALS: BP 108/72; TEMP 97.9; O2SAT 94
[2023-12-28] MEDS ORDERED: AMIN30LI66 GT (08:41)
[2023-12-28] MEDS: PANTOPRAZOLE 40 MG/PACK PACK GT SCH (09:37)
[2023-12-28] MEDS: LEVETIRACETAM SOL (5 ML) 100 MG/ML UDC GT SCH (09:37)
[2023-12-28] MEDS: DIVALPROEX SODIUM 125 MG CAP.SPRINK GT SCH ×2 (09:37→22:00)
[2023-12-28] MEDS: FINASTERIDE (5 MG) 5 MG TABLET GT SCH (09:37)
[2023-12-28] MEDS: METOPROLOL TARTRATE 25 MG TABLET GT SCH (09:38)
[2023-12-28] MEDS: CEFEPIME 1 GM in IV D5W 50 ML IV SCH (09:38)
[2023-12-28] MEDS: INSULIN REGULAR, HUMAN 100 UNIT/ML 3 ML VIAL SQ PRN ×2 (09:40→17:47)
[2023-12-28] MEDS: HEPARIN SODIUM, PORCINE 5000 UNITS/1 ML VIAL SQ SCH (09:41)
[2023-12-28] MEDS: IV D5/0.45 NACL 1,000 ML IV PRN (10:37)
[2023-12-28 12:00] VITALS: BP 118/102; TEMP 98.1; O2SAT 94
[2023-12-28 12:03] VITALS: O2SAT 94
[2023-12-28 13:26] LABS: ALANINE AMINOTRANSFERASE 9 U/L (12-78); ALBUMIN 2.1 g/dL (3.4-5.0); ALKALINE PHOSPHATASE 110 U/L (46-116); ASPARTATE AMINOTRANSFERASE 20 U/L (15-37); BILIRUBIN,TOTAL 0.8 mg/dL (0.2-1.0); CALCIUM, SERUM 8.2 mg/dL (8.5-10.1); CARBON DIOXIDE 27 mmol/L (21-32); CREATININE 1.4 mg/dL (0.6-1.3); POTASSIUM 3.7 mmol/L (3.5-5.1); TOTAL PROTEIN, SERUM 6.5 g/dL (6.4-8.2); UREA NITROGEN, BLOOD 45 mg/dL (7-18)
[2023-12-28 13:29] LABS: SODIUM SERUM 162 mmol/L (136-145)
[2023-12-28 13:30] LABS: CHLORIDE 127 mmol/L (98-107); GLUCOSE 499 mg/dL (74-106)
[2023-12-28 16:00] VITALS: BP 106/61; TEMP 97.9; O2SAT 95
[2023-12-28 18:48] LABS: CARBON DIOXIDE 24 mmol/L (21-32); CHLORIDE 126 mmol/L (98-107); CREATININE 1.2 mg/dL (0.6-1.3); POTASSIUM 4.1 mmol/L (3.5-5.1); UREA NITROGEN, BLOOD 44 mg/dL (7-18)
[2023-12-28 18:53] LABS: ALANINE AMINOTRANSFERASE < 6 U/L (12-78); ALBUMIN 2.5 g/dL (3.4-5.0); ALKALINE PHOSPHATASE 97 U/L (46-116); ASPARTATE AMINOTRANSFERASE 27 U/L (15-37); BILIRUBIN,TOTAL 0.7 mg/dL (0.2-1.0); TOTAL PROTEIN, SERUM 6.6 g/dL (6.4-8.2)
[2023-12-28 18:55] LABS: GLUCOSE 437 mg/dL (74-106); SODIUM SERUM 161 mmol/L (136-145)
[2023-12-28 20:00] VITALS: BP 97/42; TEMP 98.1; O2SAT 97
[2023-12-28] MEDS: IV 1/2NS 1000 ML 1,000 ML IV ONE (20:54)
[2023-12-28] MEDS ORDERED: INSULIN GLARGINE, 100 UNIT/ML CARTRIDGE SQ SCH (22:00)
[2023-12-28] MEDS: ATORVASTATIN 10 MG TABLET GT SCH (22:00)
[2023-12-28] MEDS: DONEPEZIL 5 MG TABLET GT SCH (22:01)
[2023-12-28] MEDS: INSULIN GLARGINE, 100 UNIT/ML CARTRIDGE SQ SCH (22:11)
[2023-12-29] VITALS: BP 99/51; TEMP 98.2; O2SAT 96
[2023-12-29 00:59] LABS: POTASSIUM 3.1 mmol/L (3.5-5.1)
[2023-12-29 01:00] LABS: ALANINE AMINOTRANSFERASE 10 U/L (12-78); ALBUMIN 2.2 g/dL (3.4-5.0); ALKALINE PHOSPHATASE 105 U/L (46-116); ASPARTATE AMINOTRANSFERASE 18 U/L (15-37); BILIRUBIN,TOTAL 0.6 mg/dL (0.2-1.0); CALCIUM, SERUM 7.8 mg/dL (8.5-10.1); CARBON DIOXIDE 27 mmol/L (21-32); CHLORIDE 127 mmol/L (98-107); CREATININE 1.2 mg/dL (0.6-1.3); GLUCOSE 286 mg/dL (74-106); SODIUM SERUM 162 mmol/L (136-145); TOTAL PROTEIN, SERUM 6.2 g/dL (6.4-8.2); UREA NITROGEN, BLOOD 40 mg/dL (7-18)
[2023-12-29 04:00] VITALS: BP 93/60; TEMP 97.3; O2SAT 98
[2023-12-29 07:25] LABS: ALANINE AMINOTRANSFERASE 18 U/L (12-78); ALBUMIN 2.1 g/dL (3.4-5.0); ALKALINE PHOSPHATASE 114 U/L (46-116); BILIRUBIN,TOTAL 0.7 mg/dL (0.2-1.0); CALCIUM, SERUM 7.6 mg/dL (8.5-10.1); CARBON DIOXIDE 26 mmol/L (21-32); CHLORIDE 125 mmol/L (98-107); CREATININE 1.2 mg/dL (0.6-1.3); GLUCOSE 297 mg/dL (74-106); POTASSIUM 3.1 mmol/L (3.5-5.1); TOTAL PROTEIN, SERUM 6.3 g/dL (6.4-8.2); UREA NITROGEN, BLOOD 39 mg/dL (7-18)
[2023-12-29 07:29] LABS: CREATINE KINASE, TOTAL 509 U/L (39-308)
[2023-12-29 07:30] LABS: MAGNESIUM 2.7 mg/dL (1.8-2.4); PHOSPHORUS 2.3 mg/dL (2.5-4.9)
[2023-12-29 07:32] LABS: BASOPHILS % (AUTO) 0.5 % (0.0-2.0); EOSINOPHILS # (AUTO) 0.1 K/uL (0.0-0.7); EOSINOPHILS % (AUTO) 1.1 % (0.0-6.0); HEMATOCRIT 38 % (39-51); HEMOGLOBIN 12.1 g/dL (13.5-17.5); LYMPHOCYTES # (AUTO) 0.5 K/uL (0.8-4.8); LYMPHOCYTES % (AUTO) 6.9 % (20.0-44.0); MEAN CORPUSCULAR HEMOGLOBIN 34 PG (26.0-33.0); MEAN CORPUSCULAR HGB CONC 32 g/dl (31.0-36.0); MEAN CORPUSCULAR VOLUME 105 fL (80-96); MONOCYTES # (AUTO) 0.4 K/uL (0.1-1.30); MONOCYTES % (AUTO) 6.3 % (2.0-12.0); NEUTROPHILS # (AUTO) 5.8 K/uL (1.8-8.9); NEUTROPHILS % (AUTO) 85.2 % (43.0-81.0); PLATELET COUNT (AUTO) 70 K/uL (150-450); RED BLOOD CELL COUNT(AUTO) 3.62 MIL/uL (4.5-6.0); RED CELL DISTRIBUTION WIDTH 14.2 % (11.5-15.0); WHITE BLOOD COUNT (AUTO) 6.8 K/uL (4.3-11.0)
[2023-12-29 08:00] VITALS: BP 109/51; TEMP 97.7; O2SAT 98
[2023-12-29 09:04] LABS: ASPARTATE AMINOTRANSFERASE 37 U/L (15-37)
[2023-12-29 09:41] LABS: SODIUM SERUM 160 mmol/L (136-145)
[2023-12-29 10:49] LABS: BASOPHILS % (MANUAL) 0 % (0.0-2.0); EOSINOPHILS % (MANUAL) 0 % (0-4); LYMPHOCYTES % (MANUAL) 4 % (16-48); MONOCYTES % (MANUAL) 3 % (0-11.0); NEUTROPHILS % (MANUAL) 93 (42-76)
[2023-12-29 12:00] VITALS: BP 108/90; TEMP 98.6; O2SAT 100
[2023-12-29 12:35] LABS: CALCIUM, SERUM 7.5 mg/dL (8.5-10.1); CARBON DIOXIDE 22 mmol/L (21-32); CHLORIDE 122 mmol/L (98-107); CREATININE 1.2 mg/dL (0.6-1.3); POTASSIUM 3.4 mmol/L (3.5-5.1); UREA NITROGEN, BLOOD 36 mg/dL (7-18)
[2023-12-29 12:36] LABS: SODIUM SERUM 158 mmol/L (136-145)
[2023-12-29 12:37] LABS: GLUCOSE 412 mg/dL (74-106)
[2023-12-29 12:41] LABS: ALKALINE PHOSPHATASE 124 U/L (46-116); BILIRUBIN,TOTAL 0.5 mg/dL (0.2-1.0); TOTAL PROTEIN, SERUM 6.2 g/dL (6.4-8.2)
[2023-12-29 12:44] LABS: PLATELET ESTIMATE DECREASED
[2023-12-29 13:48] LABS: ALANINE AMINOTRANSFERASE 11 U/L (12-78); ASPARTATE AMINOTRANSFERASE 29 U/L (15-37)
[2023-12-29] MEDS: POTASSIUM CHLORIDE 20 MEQ POWDER PACKET NG ONE (14:48)
[2023-12-29] MEDS: NEUTRA PHOS 1 POWD.PACKET GT ONE (15:42)
[2023-12-29 16:00] VITALS: BP 111/59; TEMP 97.3; O2SAT 97
[2023-12-29 20:00] VITALS: BP 102/51; TEMP 98.6; O2SAT 99
[2023-12-29 20:02] LABS: ALKALINE PHOSPHATASE 135 U/L (46-116); BILIRUBIN,TOTAL 0.5 mg/dL (0.2-1.0); CALCIUM, SERUM 7.7 mg/dL (8.5-10.1); CARBON DIOXIDE 19 mmol/L (21-32); CHLORIDE 124 mmol/L (98-107); CREATININE 1.2 mg/dL (0.6-1.3); POTASSIUM 4.3 mmol/L (3.5-5.1); TOTAL PROTEIN, SERUM 6.5 g/dL (6.4-8.2); UREA NITROGEN, BLOOD 34 mg/dL (7-18)
[2023-12-29 20:24] LABS: GLUCOSE 272 mg/dL (74-106); SODIUM SERUM 158 mmol/L (136-145)
[2023-12-29 20:58] LABS: ALANINE AMINOTRANSFERASE 20 U/L (12-78); ASPARTATE AMINOTRANSFERASE 34 U/L (15-37)
[2023-12-29] MEDS: METOPROLOL TARTRATE 25 MG TABLET PO ONE (21:45)
[2023-12-29] MEDS: INSULIN GLARGINE, 100 UNIT/ML CARTRIDGE SQ SCH (22:07)
[2023-12-29] MEDS: GLUCERNA 1.2 1,000 ML BOTTLE NG PRN (22:42)
[2023-12-30] VITALS: BP 94/56; TEMP 98.1; O2SAT 97
[2023-12-30 04:00] VITALS: BP 99/53; TEMP 97.9; O2SAT 95
[2023-12-30 08:00] VITALS: BP 115/44; TEMP 98; O2SAT 99
[2023-12-30 10:23] LABS: BASOPHILS % (AUTO) 0.4 % (0.0-2.0); EOSINOPHILS % (AUTO) 0.9 % (0.0-6.0); HEMATOCRIT 36 % (39-51); HEMOGLOBIN 11.6 g/dL (13.5-17.5); LYMPHOCYTES # (AUTO) 0.5 K/uL (0.8-4.8); LYMPHOCYTES % (AUTO) 9.1 % (20.0-44.0); MEAN CORPUSCULAR HEMOGLOBIN 33 PG (26.0-33.0); MEAN CORPUSCULAR HGB CONC 33 g/dl (31.0-36.0); MEAN CORPUSCULAR VOLUME 102 fL (80-96); MONOCYTES # (AUTO) 0.3 K/uL (0.1-1.30); MONOCYTES % (AUTO) 4.8 % (2.0-12.0); NEUTROPHILS # (AUTO) 4.4 K/uL (1.8-8.9); NEUTROPHILS % (AUTO) 84.8 % (43.0-81.0); PLATELET COUNT (AUTO) 88 K/uL (150-450); RED BLOOD CELL COUNT(AUTO) 3.47 MIL/uL (4.5-6.0); RED CELL DISTRIBUTION WIDTH 13.4 % (11.5-15.0); WHITE BLOOD COUNT (AUTO) 5.2 K/uL (4.3-11.0)
[2023-12-30] MEDS: FREE WATER VIA TUBE FEEDING GT SCH (10:28)
[2023-12-30 10:42] LABS: CALCIUM, SERUM 7.6 mg/dL (8.5-10.1); CARBON DIOXIDE 17 mmol/L (21-32); CREATININE 1.1 mg/dL (0.6-1.3); MAGNESIUM 2.8 mg/dL (1.8-2.4); POTASSIUM 4.1 mmol/L (3.5-5.1); UREA NITROGEN, BLOOD 31 mg/dL (7-18)
[2023-12-30 11:00] LABS: CHLORIDE 127 mmol/L (98-107); GLUCOSE 449 mg/dL (74-106); SODIUM SERUM 159 mmol/L (136-145)
[2023-12-30] MEDS ORDERED: Z GUARD REMEDY 4 OZ OINT TP PRN (11:00)
[2023-12-30 11:09] LABS: ANISOCYTOSIS 1+; BASOPHILS % (MANUAL) 0 % (0.0-2.0); EOSINOPHILS % (MANUAL) 0 % (0-4); LYMPHOCYTES % (MANUAL) 10 % (16-48); MONOCYTES % (MANUAL) 3 % (0-11.0); NEUTROPHILS % (MANUAL) 87 (42-76); PLATELET ESTIMATE DECREASED; TEAR DROP CELLS 1+
[2023-12-30] MEDS: Z GUARD REMEDY 4 OZ OINT TP SCH (11:29)
[2023-12-30 12:00] VITALS: TEMP 98
[2023-12-30 12:07] LABS: PTH, INTACT 176 pg/mL (15-65)
[2023-12-30] MEDS: NEUTRA PHOS 1 POWD.PACKET GT ONE (15:27)
[2023-12-30 16:00] VITALS: BP 107/55; TEMP 97.8; O2SAT 97
[2023-12-30 18:13] LABS: CALCIUM, SERUM 7.4 mg/dL (8.5-10.1); CARBON DIOXIDE 17 mmol/L (21-32); CHLORIDE 125 mmol/L (98-107); CREATININE 0.9 mg/dL (0.6-1.3); GLUCOSE 336 mg/dL (74-106); POTASSIUM 4.9 mmol/L (3.5-5.1); SODIUM SERUM 153 mmol/L (136-145); UREA NITROGEN, BLOOD 30 mg/dL (7-18)
[2023-12-30 20:00] VITALS: BP 113/61; TEMP 98.2; O2SAT 100
[2023-12-31 04:00] VITALS: BP 96/54; TEMP 98.1; O2SAT 98
[2023-12-31 06:07] LABS: *SPE A/G RATIO 0.9 (0.7-1.7); *SPE ALBUMIN 2.5 g/dL (2.9-4.4); *SPE ALPHA-1-GLOBULIN 0.3 g/dL (0.0-0.4); *SPE BETA GLOBULIN 0.6 g/dL (0.7-1.3); *SPE GLOBULIN, TOTAL 2.9 g/dL (2.2-3.9); *SPE M-SPIKE Not Observed g/dL (Not Observed); *SPE PROTEIN TOTAL 5.4 g/dL (6.0-8.5); *SPEGAMMA GLOBULIN 1.1 g/dL (0.4-1.8)
[2023-12-31 06:58] LABS: CALCIUM, SERUM 7.4 mg/dL (8.5-10.1); CARBON DIOXIDE 26 mmol/L (21-32); CHLORIDE 122 mmol/L (98-107); CREATININE 0.9 mg/dL (0.6-1.3); GLUCOSE 302 mg/dL (74-106); PHOSPHORUS 2.1 mg/dL (2.5-4.9); POTASSIUM 3.9 mmol/L (3.5-5.1); SODIUM SERUM 155 mmol/L (136-145); UREA NITROGEN, BLOOD 26 mg/dL (7-18)
[2023-12-31 08:00] VITALS: BP 112/62; TEMP 98.1; O2SAT 96
[2023-12-31 12:00] VITALS: BP 105/58; TEMP 98.2; O2SAT 96
[2023-12-31] MEDS: FREE WATER VIA TUBE FEEDING GT SCH (13:49)
[2023-12-31 15:35] VITALS: O2SAT 97
[2023-12-31 16:00] VITALS: BP 112/69; TEMP 98.4; O2SAT 97
[2023-12-31] MEDS: INSULIN ASPART/LISPRO 100 UNIT/ML CARTRIDGE SQ SCH (17:00)
[2023-12-31] MEDS: NEUTRA PHOS 1 POWD.PACKET GT ONE (18:12)
[2023-12-31 20:00] VITALS: BP 101/54; TEMP 99.1; O2SAT 96
[2023-12-31] MEDS ORDERED: INSULIN GLARGINE, 100 UNIT/ML CARTRIDGE SQ SCH (22:00)
[2023-12-31] MEDS: INSULIN GLARGINE, 100 UNIT/ML CARTRIDGE SQ SCH (22:33)
[2024-01-01] VITALS: BP 104/62; TEMP 98.8; O2SAT 97
[2024-01-01 04:00] VITALS: BP 104/54; TEMP 99.1; O2SAT 99
[2024-01-01 06:00] VITALS: O2SAT 99
[2024-01-01 08:00] VITALS: BP 118/62; TEMP 98.6; O2SAT 98
[2024-01-01 12:41] LABS: CALCIUM, SERUM 7.6 mg/dL (8.5-10.1); CARBON DIOXIDE 22 mmol/L (21-32); CHLORIDE 113 mmol/L (98-107); CREATININE 0.9 mg/dL (0.6-1.3); GLUCOSE 359 mg/dL (74-106); POTASSIUM 4.6 mmol/L (3.5-5.1); SODIUM SERUM 146 mmol/L (136-145); UREA NITROGEN, BLOOD 23 mg/dL (7-18)
[2024-01-01] MEDS: SULFAMETH/TRIMETH 800/160 MG 1 UDTAB TABLET GT SCH (12:49)
[2024-01-01 12:50] VITALS: BP 116/70; TEMP 98.6; O2SAT 98
[2024-01-01] MEDS: NEUTRA PHOS 1 POWD.PACKET NG ONE (15:44)
== END 2024-01-01 15:40 | DRG 177 ==
LOC: ER 20:39 → TELE1 12-28 00:23 → MEDSG1 12-30 15:07
PROVIDERS: ADMIT Student in an Organized Health Care Education/Training Program; ATTEND Nurse Practitioner Acute Care
DX: J15.69 Pneumonia due to other Gram-negative bacteria (principal); G93.41 Metabolic encephalopathy; I21.4 Non-ST elevation (NSTEMI) myocardial infarction; N17.0 Acute kidney failure with tubular necrosis; J96.01 Acute respiratory failure with hypoxia; N39.0 Urinary tract infection, site not specified; D68.59 Other primary thrombophilia; F02.83 Dementia in other diseases classified elsewhere, unspecified severity, with mood disturbance; Q60.0 Renal agenesis, unilateral; J98.11 Atelectasis; E87.0 Hyperosmolality and hypernatremia; J44.0 Chronic obstructive pulmonary disease with (acute) lower respiratory infection; E44.0 Moderate protein-calorie malnutrition; Z66 Do not resuscitate; Z20.822 Contact with and (suspected) exposure to COVID-19; G30.9 Alzheimer's disease, unspecified; Z86.16 Personal history of COVID-19; Z85.05 Personal history of malignant neoplasm of liver; K74.60 Unspecified cirrhosis of liver; N40.0 Benign prostatic hyperplasia without lower urinary tract symptoms; I10 Essential (primary) hypertension; I25.10 Atherosclerotic heart disease of native coronary artery without angina pectoris; E11.65 Type 2 diabetes mellitus with hyperglycemia; F20.9 Schizophrenia, unspecified; Z79.4 Long term (current) use of insulin; Z79.51 Long term (current) use of inhaled steroids; Z79.899 Other long term (current) drug therapy; E87.8 Other disorders of electrolyte and fluid balance, not elsewhere classified; E86.0 Dehydration; G40.909 Epilepsy, unspecified, not intractable, without status epilepticus; K21.00 Gastro-esophageal reflux disease with esophagitis, without bleeding; E78.5 Hyperlipidemia, unspecified; E88.09 Other disorders of plasma-protein metabolism, not elsewhere classified; Z74.01 Bed confinement status; D63.8 Anemia in other chronic diseases classified elsewhere; D69.6 Thrombocytopenia, unspecified; N26.1 Atrophy of kidney (terminal); R13.10 Dysphagia, unspecified; Y95 Nosocomial condition; F09 Unspecified mental disorder due to known physiological condition; L98.9 Disorder of the skin and subcutaneous tissue, unspecified; B95.62 Methicillin resistant Staphylococcus aureus infection as the cause of diseases classified elsewhere
CPT/HCPCS: 36415; 70450-TC; 71045-TC; 76770-TC; 80048-TC; 80053-TC; 80076-TC; 81001; 82248-TC; 82550-TC; 82553; 82962-TC; 83605-TC; 83735-TC; 83970; 84100-TC; 84155; 84165; 84484-TC; 85025-TC; 85730-TC; 87040-TC; 87086-TC; 94762-TC; 94799-TC; A4216; A4223; G0378; J0692; J0696; J1644; J1815; J1953; J3490; J7030; J7050; J7060; P9047

== ENCOUNTER 2024-02-12 15:50 | Inpatient (IN) | payer MEDICARE, OTHER ==
[~2024-02-12] VITALS: Ht 165.1 cm; Wt 72.6 kg
[~2024-02-12 15:50] MED LIST changes: +AMIN30LI66 GT; -DOCU50LI GT; -POLY17PO4 GT; -ZINC220C6 GT
[2024-02-12] MEDS ORDERED: ONDANSETRON HCL/PF 4 MG/2 ML VIAL ONE (16:24)
[2024-02-12] MEDS ORDERED: ACETAMINOPHEN 650 MG/20.3 ML UDC ONE (16:25)
[2024-02-12] MEDS ORDERED: MORPHINE SULFATE INJ 4 MG/ML DISP.SYRIN ONE (16:25)
[2024-02-12] MEDS: ACETAMINOPHEN 650 MG/20 ML UDC- SA PATIENTS-FEVER ONLY GT PRN (16:33)
[2024-02-12] MEDS: ONDANSETRON HCL/PF 4 MG/2 ML VIAL IVP ONE (16:35)
[2024-02-12] MEDS: MORPHINE SULFATE INJ 2 MG/ML DISP.SYRIN IV ONE (16:37)
[2024-02-12 16:39] LABS: BASOPHILS % (AUTO) 0.1 % (0.0-2.0); EOSINOPHILS % (AUTO) 0.3 % (0.0-6.0); HEMATOCRIT 58 % (39-51); LYMPHOCYTES # (AUTO) 1.2 K/uL (0.8-4.8); LYMPHOCYTES % (AUTO) 11.7 % (20.0-44.0); MEAN CORPUSCULAR HEMOGLOBIN 33 PG (26.0-33.0); MEAN CORPUSCULAR HGB CONC 31 g/dl (31.0-36.0); MEAN CORPUSCULAR VOLUME 107 fL (80-96); MONOCYTES # (AUTO) 0.5 K/uL (0.1-1.30); MONOCYTES % (AUTO) 5.1 % (2.0-12.0); NEUTROPHILS # (AUTO) 8.3 K/uL (1.8-8.9); NEUTROPHILS % (AUTO) 82.8 % (43.0-81.0); PLATELET COUNT (AUTO) 96 K/uL (150-450); RED BLOOD CELL COUNT(AUTO) 5.45 MIL/uL (4.5-6.0); RED CELL DISTRIBUTION WIDTH 17.4 % (11.5-15.0)
[2024-02-12 16:54] LABS: PARTIAL THROMBOPLASTIN TIME 20.5 SEC (24.3-34.3); PROTHROMBIN TIME 10.6 SECS (9.2-11.1)
[2024-02-12 16:57] LABS: LACTIC ACID 4.3 mmol/L (0.4-2.0)
[2024-02-12 17:16] LABS: CARBON DIOXIDE 30 mmol/L (21-32); CREATININE 1.9 mg/dL (0.6-1.3); POTASSIUM 4.5 mmol/L (3.5-5.1); UREA NITROGEN, BLOOD 77 mg/dL (7-18)
[2024-02-12 17:25] LABS: ALANINE AMINOTRANSFERASE 25 U/L (12-78); ALKALINE PHOSPHATASE 168 U/L (46-116); ASPARTATE AMINOTRANSFERASE 15 U/L (15-37); BILIRUBIN,DIRECT 0.1 mg/dL (0.0-0.2); BILIRUBIN,TOTAL 0.7 mg/dL (0.2-1.0); TOTAL PROTEIN, SERUM 8.4 g/dL (6.4-8.2)
[2024-02-12 17:27] LABS: ABG BASE EXCESS 0.2 mmol/L (-2.0-3.0); ABG OXYGEN SATURATION 94.5 % (94.0-98.0); ABG PCO2 40.1 mmHg (35.0-48.0); ABG PH 7.409 (7.350-7.450); ABG PO2 73.9 mmHg (83.0-108.0); ABG TOTAL HEMOGLOBIN 17.7 G/dL (13.5-17.5); COHb 0.2 % (0.5-1.5); MetHb 0.3 % (0.0-1.5); SITE, ABG RIGHT RADIAL
[2024-02-12 17:29] LABS: SODIUM SERUM 169 mmol/L (136-145)
[2024-02-12 17:30] LABS: CHLORIDE 128 mmol/L (98-107); GLUCOSE 421 mg/dL (74-106)
[2024-02-12] MEDS: IV NS 0.9% 1,000 ML BAG IV ONE (17:30)
[2024-02-12 17:39] LABS: APPEARANCE,URINE Clear (CLEAR); BILIRUBIN,URINE Negative (NEGATIVE); BLOOD, URINE Moderate Ery/uL (NEGATIVE); COLOR,URINE YELLOW (YELLOW); KETONES,URINE Trace mg/dL (NEGATIVE); LEUKOCYTE ESTERASE ,URINE Trace (NEGATIVE); NITRITE, URINE Negative (NEGATIVE); PROTEIN,URINE 30 mg/dl (NEGATIVE); UGLUCOSE 100 MG/DL mg/dL (NEGATIVE); UROBILINOGEN,URINE 0.2 EU/dL (0.2)
[2024-02-12 17:49] LABS: ADD URINE CULTURE YES; BACTERIA,URINE 1+ /HPF (None Seen); MUCUS,URINE Few /LPF (None Seen); SQUAMOUS EPITHELIAL CELL,UR None Seen /HPF (None Seen)
[2024-02-12] MEDS ORDERED: PIPERACI/TAZO 3.375GM/D5W 50ML PB IV ONE (17:52)
[2024-02-12] MEDS ORDERED: DIVA125C5 GT (17:54)
[2024-02-12] MEDS ORDERED: *INS REG3 SQ (17:54)
[2024-02-12] MEDS ORDERED: DONE5TAB34 PO (17:54)
[2024-02-12] MEDS ORDERED: MICO85PO6 TP (17:54)
[2024-02-12] MEDS ORDERED: PETR113O TP (17:59)
[2024-02-12] MEDS ORDERED: POVI3780 TP (17:59)
[2024-02-12] MEDS ORDERED: COLL30OI TP (17:59)
[2024-02-12] MEDS ORDERED: ZINC56.713 TP (17:59)
[2024-02-12] MEDS: PIPERACILLIN /TAZOBACTAM 3.375 G in IV D5W 50 ML IV ONE (18:15)
[2024-02-12] MEDS ORDERED: MAG HYDROX/AL HYDROX/SIMETH 30 ML UDC PO PRN (18:30)
[2024-02-12] MEDS ORDERED: MAGNESIUM HYDROXIDE 30 ML UDC PO PRN (18:30)
[2024-02-12] MEDS ORDERED: ONDANSETRON HCL/PF 4 MG/2 ML VIAL IVP PRN (18:30)
[2024-02-12] MEDS ORDERED: ENOXAPARIN SODIUM 30 MG/0.3 ML DISP.SYRIN SQ SCH (18:30)
[2024-02-12] MEDS ORDERED: BISACODYL SUPP (10 MG) 10 MG/SUPP.RECT SUPP.RECT RC PRN (18:30)
[2024-02-12] MEDS ORDERED: ACETAMINOPHEN 325 MG TABLET PO PRN (18:30)
[2024-02-12] MEDS: IV 1/2NS 1000 ML 1,000 ML IV SCH (18:30)
[2024-02-12] MEDS ORDERED: Z GUARD REMEDY 4 OZ OINT TP PRN (18:30)
[2024-02-12 20:10] LABS: ANISOCYTOSIS 1+; BAND % (MANUAL) 7 % (0.0-5.0); LYMPHOCYTES % (MANUAL) 11 % (16-48); MONOCYTES % (MANUAL) 3 % (0-11.0); NEUTROPHILS % (MANUAL) 79 (42-76); PLATELET ESTIMATE DECREASED
[2024-02-12 20:11] LABS: ROULEAUX 1+
[2024-02-12] MEDS: SENNOSIDES 8.6 MG TABLET GT SCH (21:38)
[2024-02-12] MEDS: DONEPEZIL 5 MG TABLET PO SCH (21:38)
[2024-02-12] MEDS: METOPROLOL TARTRATE 25 MG TABLET GT SCH (21:40)
[2024-02-12] MEDS: CEFEPIME 2 GM in IV D5W 100 ML IV SCH (21:42)
[2024-02-12] MEDS: VANCOMYCIN HCL 1.25 GM in IV D5W 250 ML IV ONE (21:43)
[2024-02-12] MEDS: DIVALPROEX SODIUM 125 MG CAP.SPRINK GT SCH (22:40)
[2024-02-13] VITALS (7 sets, daily range): BP systolic 92–151; BP diastolic 47–129; TEMP 97.5–98.2; O2SAT 94–99
[2024-02-13] MEDS: ASPIRIN 325 MG TABLET PO SCH (01:05)
[2024-02-13 07:12] LABS: CALCIUM, SERUM 7.9 mg/dL (8.5-10.1); CARBON DIOXIDE 21 mmol/L (21-32); CREATININE 1.6 mg/dL (0.6-1.3); GLUCOSE 315 mg/dL (74-106); MAGNESIUM 2.7 mg/dL (1.8-2.4); PHOSPHORUS 3.9 mg/dL (2.5-4.9); POTASSIUM 4.5 mmol/L (3.5-5.1); UREA NITROGEN, BLOOD 63 mg/dL (7-18)
[2024-02-13 07:49] LABS: CHLORIDE 132 mmol/L (98-107); SODIUM SERUM 166 mmol/L (136-145)
[2024-02-13] MEDS: DIVALPROEX SODIUM 125 MG CAP.SPRINK GT SCH (08:38)
[2024-02-13] MEDS: PANTOPRAZOLE 40 MG/PACK PACK GT SCH (08:38)
[2024-02-13] MEDS: LEVETIRACETAM SOL (5 ML) 100 MG/ML UDC GT SCH (08:38)
[2024-02-13] MEDS: FINASTERIDE (5 MG) 5 MG TABLET GT SCH (08:39)
[2024-02-13] MEDS: COLLAGENASE 30 GM TUBE TP SCH (08:40)
[2024-02-13 10:33] LABS: BASOPHILS % (AUTO) 0.2 % (0.0-2.0); EOSINOPHILS # (AUTO) 0.1 K/uL (0.0-0.7); EOSINOPHILS % (AUTO) 1.2 % (0.0-6.0); HEMATOCRIT 45 % (39-51); HEMOGLOBIN 13.5 g/dL (13.5-17.5); LYMPHOCYTES # (AUTO) 0.3 K/uL (0.8-4.8); LYMPHOCYTES % (AUTO) 4.9 % (20.0-44.0); MEAN CORPUSCULAR HEMOGLOBIN 33 PG (26.0-33.0); MEAN CORPUSCULAR HGB CONC 31 g/dl (31.0-36.0); MEAN CORPUSCULAR VOLUME 109 fL (80-96); MONOCYTES # (AUTO) 0.4 K/uL (0.1-1.30); MONOCYTES % (AUTO) 7.1 % (2.0-12.0); NEUTROPHILS # (AUTO) 5.1 K/uL (1.8-8.9); NEUTROPHILS % (AUTO) 86.6 % (43.0-81.0); PLATELET COUNT (AUTO) 55 K/uL (150-450); RED BLOOD CELL COUNT(AUTO) 4.08 MIL/uL (4.5-6.0); RED CELL DISTRIBUTION WIDTH 16.8 % (11.5-15.0); WHITE BLOOD COUNT (AUTO) 5.9 K/uL (4.3-11.0)
[2024-02-13] MEDS: THERAHONEY GEL 1.5 OZ TUBE TP SCH (12:04)
[2024-02-13 13:52] LABS: BAND % (MANUAL) 13 % (0.0-5.0); LYMPHOCYTES % (MANUAL) 5 % (16-48); MONOCYTES % (MANUAL) 8 % (0-11.0); NEUTROPHILS % (MANUAL) 74 (42-76)
[2024-02-13 13:53] LABS: PLATELET ESTIMATE DECREASED
[2024-02-13 13:54] LABS: ANISOCYTOSIS 1+; STOMATOCYTES 1+
[2024-02-13 15:19] LABS: CALCIUM, SERUM 8.4 mg/dL (8.5-10.1); CARBON DIOXIDE 26 mmol/L (21-32); CREATININE 1.4 mg/dL (0.6-1.3); GLUCOSE 255 mg/dL (74-106); POTASSIUM 4.4 mmol/L (3.5-5.1); UREA NITROGEN, BLOOD 59 mg/dL (7-18)
[2024-02-13 15:34] LABS: CHLORIDE 134 mmol/L (98-107); SODIUM SERUM 170 mmol/L (136-145)
[2024-02-13] MEDS: AMMONIUM LACTATE 227 GM BOTTLE TP SCH (16:42)
[2024-02-13] MEDS: GLUCERNA 1.2 1,000 ML BOTTLE NG PRN (18:16)
[2024-02-13] MEDS: VANCOMYCIN 1 GM in IV D5W 250ml IV SCH (21:57)
[2024-02-14] VITALS (7 sets, daily range): BP systolic 98–110; BP diastolic 48–66; TEMP 97.5–98.1; O2SAT 94–99
[2024-02-14 01:52] LABS: CREATININE, URINE 42.5 MG/DL (30.0-125.0); URINE TOTAL PROTEIN 50.1 mg/dL (0-11.9)
[2024-02-14] MEDS ORDERED: MAG HYDROX/AL HYDROX/SIMETH 30 ML UDC GT PRN (07:01)
[2024-02-14] MEDS ORDERED: MAGNESIUM HYDROXIDE 30 ML UDC GT PRN (07:02)
[2024-02-14] MEDS ORDERED: ACETAMINOPHEN 650 MG/20.3 ML UDC GT PRN (07:30)
[2024-02-14] MEDS: ASPIRIN 325 MG TABLET GT SCH (08:42)
[2024-02-14 09:01] LABS: BASOPHILS % (AUTO) 0.2 % (0.0-2.0); EOSINOPHILS # (AUTO) 0.1 K/uL (0.0-0.7); HEMATOCRIT 45 % (39-51); HEMOGLOBIN 13.3 g/dL (13.5-17.5); LYMPHOCYTES # (AUTO) 0.5 K/uL (0.8-4.8); LYMPHOCYTES % (AUTO) 9.1 % (20.0-44.0); MEAN CORPUSCULAR HEMOGLOBIN 33 PG (26.0-33.0); MEAN CORPUSCULAR HGB CONC 30 g/dl (31.0-36.0); MEAN CORPUSCULAR VOLUME 113 fL (80-96); MONOCYTES # (AUTO) 0.4 K/uL (0.1-1.30); MONOCYTES % (AUTO) 6.8 % (2.0-12.0); NEUTROPHILS # (AUTO) 4.4 K/uL (1.8-8.9); NEUTROPHILS % (AUTO) 81.9 % (43.0-81.0); PLATELET COUNT (AUTO) 54 K/uL (150-450); RED BLOOD CELL COUNT(AUTO) 3.98 MIL/uL (4.5-6.0); RED CELL DISTRIBUTION WIDTH 16.5 % (11.5-15.0); WHITE BLOOD COUNT (AUTO) 5.4 K/uL (4.3-11.0)
[2024-02-14] MEDS: FREE WATER VIA TUBE FEEDING GT SCH (09:11)
[2024-02-14] MEDS: CEFEPIME 2 GM in IV D5W 100 ML IV SCH (09:25)
[2024-02-14 09:50] LABS: ALANINE AMINOTRANSFERASE 17 U/L (12-78); ALKALINE PHOSPHATASE 119 U/L (46-116); ASPARTATE AMINOTRANSFERASE 39 U/L (15-37); BILIRUBIN,TOTAL 0.8 mg/dL (0.2-1.0); CALCIUM, SERUM 7.5 mg/dL (8.5-10.1); CARBON DIOXIDE 22 mmol/L (21-32); CREATININE 1.3 mg/dL (0.6-1.3); GLUCOSE 380 mg/dL (74-106); MAGNESIUM 2.6 mg/dL (1.8-2.4); PHOSPHORUS 2.7 mg/dL (2.5-4.9); POTASSIUM 4.1 mmol/L (3.5-5.1); TOTAL PROTEIN, SERUM 6.2 g/dL (6.4-8.2); UREA NITROGEN, BLOOD 44 mg/dL (7-18)
[2024-02-14 09:59] LABS: CHLORIDE 127 mmol/L (98-107); SODIUM SERUM 158 mmol/L (136-145)
[2024-02-14 10:14] LABS: CREATINE KINASE, TOTAL 292 U/L (39-308)
[2024-02-14] MEDS: INSULIN GLARGINE, 100 UNIT/ML CARTRIDGE SQ SCH (10:33)
[2024-02-14] MEDS: IV 1/2NS 1000 ML 1,000 ML IV PRN (11:32)
[2024-02-14 12:03] LABS: ANISOCYTOSIS 1+; BAND % (MANUAL) 9 % (0.0-5.0); BASOPHILS % (MANUAL) 0 % (0.0-2.0); EOSINOPHILS % (MANUAL) 0 % (0-4); LYMPHOCYTES % (MANUAL) 11 % (16-48); MONOCYTES % (MANUAL) 5 % (0-11.0); NEUTROPHILS % (MANUAL) 75 (42-76); PLATELET ESTIMATE DECREASED
[2024-02-14] MEDS: VANCOMYCIN HCL 1.25 GM in IV D5W 250 ML IV SCH (20:28)
[2024-02-14] MEDS: DONEPEZIL 5 MG TABLET GT SCH (21:08)
[2024-02-15] VITALS: BP 122/62; TEMP 98.1; O2SAT 97
[2024-02-15 04:00] VITALS: BP 119/78; TEMP 98.7; O2SAT 96
[2024-02-15 06:36] LABS: CALCIUM, SERUM 7.4 mg/dL (8.5-10.1); CARBON DIOXIDE 21 mmol/L (21-32); CHLORIDE 120 mmol/L (98-107); CREATININE 1.1 mg/dL (0.6-1.3); GLUCOSE 370 mg/dL (74-106); POTASSIUM 4.4 mmol/L (3.5-5.1); SODIUM SERUM 150 mmol/L (136-145); UREA NITROGEN, BLOOD 35 mg/dL (7-18)
[2024-02-15 08:00] VITALS: BP 110/53; TEMP 98.2; O2SAT 96
[2024-02-15 11:06] LABS: PTH, INTACT 194 pg/mL (15-65)
[2024-02-15 12:00] VITALS: BP 98/32; TEMP 97.8; O2SAT 99
[2024-02-15 16:00] VITALS: BP 100/41; TEMP 98.6; O2SAT 96
[2024-02-15 20:00] VITALS: BP 96/40; TEMP 98.6; O2SAT 97
[2024-02-16] VITALS: BP 94/43; TEMP 98.9; O2SAT 95
[2024-02-16 04:00] VITALS: BP 102/41; TEMP 98.1; O2SAT 96
[2024-02-16 08:00] VITALS: BP 125/49; TEMP 98.6; O2SAT 98
[2024-02-16 12:00] VITALS: BP 124/59; TEMP 97.9; O2SAT 99
[2024-02-16 16:00] VITALS: BP 103/37; TEMP 97.7; O2SAT 96
[2024-02-16 17:16] LABS: BASOPHILS % (AUTO) 0.3 % (0.0-2.0); EOSINOPHILS # (AUTO) 0.1 K/uL (0.0-0.7); EOSINOPHILS % (AUTO) 2.8 % (0.0-6.0); HEMATOCRIT 36 % (39-51); HEMOGLOBIN 11.8 g/dL (13.5-17.5); LYMPHOCYTES # (AUTO) 0.5 K/uL (0.8-4.8); LYMPHOCYTES % (AUTO) 11.7 % (20.0-44.0); MEAN CORPUSCULAR HEMOGLOBIN 33 PG (26.0-33.0); MEAN CORPUSCULAR HGB CONC 33 g/dl (31.0-36.0); MEAN CORPUSCULAR VOLUME 101 fL (80-96); MONOCYTES # (AUTO) 0.4 K/uL (0.1-1.30); MONOCYTES % (AUTO) 8.6 % (2.0-12.0); NEUTROPHILS # (AUTO) 3.2 K/uL (1.8-8.9); NEUTROPHILS % (AUTO) 76.6 % (43.0-81.0); PLATELET COUNT (AUTO) 52 K/uL (150-450); RED BLOOD CELL COUNT(AUTO) 3.53 MIL/uL (4.5-6.0); RED CELL DISTRIBUTION WIDTH 15.2 % (11.5-15.0); WHITE BLOOD COUNT (AUTO) 4.1 K/uL (4.3-11.0)
[2024-02-16 17:38] LABS: CALCIUM, SERUM 7.1 mg/dL (8.5-10.1); CARBON DIOXIDE 20 mmol/L (21-32); CHLORIDE 113 mmol/L (98-107); CREATININE 0.9 mg/dL (0.6-1.3); GLUCOSE 325 mg/dL (74-106); POTASSIUM 4.2 mmol/L (3.5-5.1); SODIUM SERUM 142 mmol/L (136-145); UREA NITROGEN, BLOOD 25 mg/dL (7-18)
[2024-02-16 18:31] LABS: ANISOCYTOSIS 1+; BAND % (MANUAL) 13 % (0.0-5.0); EOSINOPHILS % (MANUAL) 1 % (0-4); LYMPHOCYTES % (MANUAL) 12 % (16-48); MONOCYTES % (MANUAL) 4 % (0-11.0); NEUTROPHILS % (MANUAL) 70 (42-76); PLATELET ESTIMATE DECREASED
[2024-02-16 20:00] VITALS: BP 106/48; TEMP 97.9; O2SAT 98
[2024-02-16] MEDS: VANCOMYCIN 1 GM in IV D5W 250 ML IV SCH (21:06)
[2024-02-17] VITALS: BP 120/60; TEMP 98.4; O2SAT 97
[2024-02-17 04:00] VITALS: BP 110/50; TEMP 98; O2SAT 98
[2024-02-17 06:49] LABS: BASOPHILS % (AUTO) 0.1 % (0.0-2.0); EOSINOPHILS # (AUTO) 0.1 K/uL (0.0-0.7); EOSINOPHILS % (AUTO) 1.8 % (0.0-6.0); HEMATOCRIT 36 % (39-51); HEMOGLOBIN 11.8 g/dL (13.5-17.5); LYMPHOCYTES # (AUTO) 0.5 K/uL (0.8-4.8); LYMPHOCYTES % (AUTO) 11.8 % (20.0-44.0); MEAN CORPUSCULAR HEMOGLOBIN 33 PG (26.0-33.0); MEAN CORPUSCULAR HGB CONC 33 g/dl (31.0-36.0); MEAN CORPUSCULAR VOLUME 101 fL (80-96); MONOCYTES # (AUTO) 0.4 K/uL (0.1-1.30); MONOCYTES % (AUTO) 8.3 % (2.0-12.0); NEUTROPHILS # (AUTO) 3.3 K/uL (1.8-8.9); PLATELET COUNT (AUTO) 53 K/uL (150-450); RED BLOOD CELL COUNT(AUTO) 3.55 MIL/uL (4.5-6.0); WHITE BLOOD COUNT (AUTO) 4.3 K/uL (4.3-11.0)
[2024-02-17 07:02] LABS: CALCIUM, SERUM 7.8 mg/dL (8.5-10.1); CARBON DIOXIDE 20 mmol/L (21-32); CHLORIDE 112 mmol/L (98-107); CREATININE 0.9 mg/dL (0.6-1.3); GLUCOSE 292 mg/dL (74-106); POTASSIUM 4.3 mmol/L (3.5-5.1); SODIUM SERUM 142 mmol/L (136-145); UREA NITROGEN, BLOOD 19 mg/dL (7-18)
[2024-02-17 08:00] VITALS: BP 123/50; TEMP 97.9; O2SAT 96
[2024-02-17 08:43] VITALS: BP 123/50
[2024-02-17 09:59] LABS: BAND % (MANUAL) 3 % (0.0-5.0); LYMPHOCYTES % (MANUAL) 8 % (16-48); MONOCYTES % (MANUAL) 4 % (0-11.0); NEUTROPHILS % (MANUAL) 85 (42-76)
[2024-02-17 10:00] LABS: ANISOCYTOSIS 1+; PLATELET ESTIMATE DECREASED
[2024-02-17 10:07] LABS: *SPE A/G RATIO 0.6 (0.7-1.7); *SPE ALPHA-1-GLOBULIN 0.3 g/dL (0.0-0.4); *SPE ALPHA-2-GLOBULIN 0.5 g/dL (0.4-1.0); *SPE GLOBULIN, TOTAL 3.6 g/dL (2.2-3.9); *SPE M-SPIKE 0.7 g/dL (Not Observed); *SPE PROTEIN TOTAL 5.6 g/dL (6.0-8.5); *SPEGAMMA GLOBULIN 1.8 g/dL (0.4-1.8)
[2024-02-17] MEDS ORDERED: VANC1FRO2 IV (11:53)
[2024-02-17] MEDS ORDERED: ASPI-992 GT (11:53)
[2024-02-17] MEDS ORDERED: CEFE2FRO IV (11:53)
== END 2024-02-17 14:12 | DRG 871 ==
LOC: ER 15:58 → TELE1 19:30 → TELE-TD 20:12 → TELE1 02-17 09:58
PROVIDERS: ADMIT Internal Medicine; ATTEND Internal Medicine
DX: A41.9 Sepsis, unspecified organism (principal); E43 Unspecified severe protein-calorie malnutrition; G93.41 Metabolic encephalopathy; J96.21 Acute and chronic respiratory failure with hypoxia; J15.69 Pneumonia due to other Gram-negative bacteria; N17.0 Acute kidney failure with tubular necrosis; I21.A1 Myocardial infarction type 2; J44.0 Chronic obstructive pulmonary disease with (acute) lower respiratory infection; D68.59 Other primary thrombophilia; E87.0 Hyperosmolality and hypernatremia; E87.20 Acidosis, unspecified; F02.83 Dementia in other diseases classified elsewhere, unspecified severity, with mood disturbance; E11.52 Type 2 diabetes mellitus with diabetic peripheral angiopathy with gangrene; E11.22 Type 2 diabetes mellitus with diabetic chronic kidney disease; N18.9 Chronic kidney disease, unspecified; E86.0 Dehydration; D69.6 Thrombocytopenia, unspecified; D63.8 Anemia in other chronic diseases classified elsewhere; D75.1 Secondary polycythemia; E78.5 Hyperlipidemia, unspecified; I48.91 Unspecified atrial fibrillation; M89.8X9 Other specified disorders of bone, unspecified site; R13.10 Dysphagia, unspecified; Z85.05 Personal history of malignant neoplasm of liver; Z90.5 Acquired absence of kidney; Z93.1 Gastrostomy status; Z20.822 Contact with and (suspected) exposure to COVID-19; N40.0 Benign prostatic hyperplasia without lower urinary tract symptoms; Z74.09 Other reduced mobility; E88.09 Other disorders of plasma-protein metabolism, not elsewhere classified; Z79.4 Long term (current) use of insulin; I25.10 Atherosclerotic heart disease of native coronary artery without angina pectoris; K21.00 Gastro-esophageal reflux disease with esophagitis, without bleeding; K74.60 Unspecified cirrhosis of liver; F20.9 Schizophrenia, unspecified; G30.9 Alzheimer's disease, unspecified; G40.909 Epilepsy, unspecified, not intractable, without status epilepticus; I12.9 Hypertensive chronic kidney disease with stage 1 through stage 4 chronic kidney disease, or unspecified chronic kidney disease; S90.822A Blister (nonthermal), left foot, initial encounter; X58.XXXA Exposure to other specified factors, initial encounter; Y93.9 Activity, unspecified; Y92.129 Unspecified place in nursing home as the place of occurrence of the external cause; L89.510 Pressure ulcer of right ankle, unstageable; L89.620 Pressure ulcer of left heel, unstageable; L89.890 Pressure ulcer of other site, unstageable; S31.000A Unspecified open wound of lower back and pelvis without penetration into retroperitoneum, initial encounter
CPT/HCPCS: 36415; 36600; 70450-TC; 71045-TC; 76770-TC; 80048-TC; 80053-TC; 80076-TC; 80202-TC; 81001; 82550-TC; 82570-TC; 82803-TC; 82962-TC; 83605-TC; 83735-TC; 83970; 84100-TC; 84155; 84165; 84300-TC; 84484-TC; 85025-TC; 85730-TC; 87040-TC; 87086-TC; 93307-TC; A4223; A6403; G0378; J0692; J1815; J1953; J2270; J2405; J2543; J3370; J3490; J7030; J7060